=== PATIENT | male | born 1960 | race Two or more races ===

== ENCOUNTER 2021-04-30 09:35 | Inpatient (IN) | payer MEDICAID, OTHER ==
[~2021-04-30] VITALS: Ht 172.7 cm; Wt 88.5 kg
[2021-04-30] MEDS ORDERED: cefTRIAXone 1GM/50ML D5W 50 ML IV ONE (10:45)
[2021-04-30] MEDS ORDERED: DexAMETHasone SOD PHOS 10MG/1ML VIAL INJ IV ONE (10:45)
[2021-04-30 11:11] LABS: Basophils # (auto) 0.2 10 ^3/uL (0-0.2); Basophils % (auto) 1.5 % (0.0-2.0); Eosinophils # (auto) 0 10 ^3/uL (0-0.8); Hematocrit 50.7 % (41.0-53.0); Hemoglobin 17.3 g/dL (13.5-17.5); Lymphocytes # (auto) 1.7 10 ^3/uL (0.4-5.4); Lymphocytes % (auto) 15.8 % (10.0-50.0); Mean Corpuscular Hemoglobin 31.7 pg (28.0-32.0); Mean Corpuscular Hgb Conc. 34.2 g/dL (32.0-36.0); Mean Corpuscular Volume 92.7 fL (80.0-100.0); Monocytes # (auto) 0.8 10 ^3/uL (0-1.3); Monocytes % (auto) 7.8 % (0.0-12.0); Neutrophils # (auto) 8.1 10 ^3/uL (1.6-8.6); Neutrophils % (auto) 74.9 % (37.0-80.0); Nucleated Red Blood Cells % 0.2 %; Red Blood Cells 5.48 10^6/uL (4.5-5.90); Red Cell Distribution Width 13.5 % (11.8-14.3); White Blood Cell 10.8 10^3/uL (4.4-10.8)
[2021-04-30 11:27] LABS: Albumin 2.4 g/dL (3.4-5.0); Anion Gap 5 (5-15); Blood Urea Nitrogen 13 mg/dL (7-18); Calcium 7.2 mg/dL (8.5-10.1); Carbon Dioxide 23 mmol/L (21-32); Chloride 111 mmol/L (98-107); Glucose 101 mg/dL (74-106); Potassium 3.1 mmol/L (3.5-5.1); Sodium 139 mmol/L (136-145)
[2021-04-30 11:36] LABS: Alanine Aminotransferase 28 U/L (16-61); Alkaline Phosphatase 69 U/L (45-117); Aspartate Aminotransferase 49 U/L (15-37); BUN/Creatinine Ratio 20.6; Bilirubin, Total 0.7 mg/dL (0.2-1.0); CRP High Sensitivity 7.38 mg/dL (< 0.3); GFR African American 165 mL/min; GFR Non-African American 137 mL/min; Total Protein 7.5 g/dL (6.4-8.2)
[2021-04-30] MEDS ORDERED: ONDANSETRON HCL 4 MG/2 ML VIAL IV ONE (12:00)
[2021-04-30] MEDS ORDERED: ENOXAPARIN SOD 120 MG/0.8 ML SYRINGE SC ONE (12:15)
[2021-04-30] MEDS ORDERED: IOHEXOL 350 MG/ML 100ML IJ ONE (12:22)
[2021-04-30] MEDS ORDERED: REMDESIVIR PER PHARMACY 0 ML IV SCH (15:45)
[2021-04-30] MEDS ORDERED: ONDANSETRON HCL 4 MG/2 ML VIAL IV PRN (15:45)
[2021-04-30] MEDS ORDERED: HYDROcodone-ACET 5/325MG TAB PO PRN (15:45)
[2021-04-30] MEDS ORDERED: ACETAMINOPHEN 500 MG TAB PO PRN (15:45)
[2021-04-30] MEDS ORDERED: hydrALAZINE HCL 20 MG/ML VL IV PRN (15:45)
[2021-04-30] MEDS: POTASSIUM CHL 20MEQ/100ML 100 ML IV SCH ×2 (16:42→20:09)
[2021-04-30] MEDS: ALBUTEROL SULF HFA 90MCG INH 200DOSE IN SCH ×2 (18:00→22:51)
[2021-04-30 21:03] LABS: Urine Bacteria NONE SEEN /hpf (None Seen); Urine Blood Negative /uL (Negative); Urine Mucus FEW (None Seen); Urine Specific Gravity 1.036 (1.001-1.035); Urine WBC 2 /hpf (0 - 3)
[2021-04-30 22:51] VITALS: BP 128/83
[2021-04-30 23:41] LABS: Basophils # (auto) 0.1 10 ^3/uL (0-0.2); Basophils % (auto) 0.6 % (0.0-2.0); Eosinophils # (auto) 0 10 ^3/uL (0-0.8); Hematocrit 42.2 % (41.0-53.0); Hemoglobin 14.6 g/dL (13.5-17.5); Lymphocytes # (auto) 1.3 10 ^3/uL (0.4-5.4); Lymphocytes % (auto) 13.6 % (10.0-50.0); Mean Corpuscular Hemoglobin 32.1 pg (28.0-32.0); Mean Corpuscular Hgb Conc. 34.6 g/dL (32.0-36.0); Mean Corpuscular Volume 92.8 fL (80.0-100.0); Monocytes # (auto) 0.6 10 ^3/uL (0-1.3); Monocytes % (auto) 6.3 % (0.0-12.0); Neutrophils # (auto) 7.3 10 ^3/uL (1.6-8.6); Neutrophils % (auto) 79.5 % (37.0-80.0); Nucleated Red Blood Cells % 0.1 %; Red Blood Cells 4.55 10^6/uL (4.5-5.90); Red Cell Distribution Width 13.4 % (11.8-14.3); White Blood Cell 9.2 10^3/uL (4.4-10.8)
[2021-05-01 00:01] LABS: Calcium 7.5 mg/dL (8.5-10.1); Potassium 4.9 mmol/L (3.5-5.1)
[2021-05-01 00:06] LABS: Albumin 2.1 g/dL (3.4-5.0); Bilirubin, Total 0.5 mg/dL (0.2-1.0); Total Protein 7.1 g/dL (6.4-8.2)
[2021-05-01 00:08] LABS: BUN/Creatinine Ratio 21.3
[2021-05-01 03:40] LABS: Basophils # (auto) 0.1 10 ^3/uL (0-0.2); Basophils % (auto) 0.8 % (0.0-2.0); Eosinophils # (auto) 0 10 ^3/uL (0-0.8); Hematocrit 43.5 % (41.0-53.0); Hemoglobin 15.1 g/dL (13.5-17.5); Lymphocytes # (auto) 1.6 10 ^3/uL (0.4-5.4); Lymphocytes % (auto) 13.6 % (10.0-50.0); Mean Corpuscular Hemoglobin 32.2 pg (28.0-32.0); Mean Corpuscular Hgb Conc. 34.7 g/dL (32.0-36.0); Mean Corpuscular Volume 92.8 fL (80.0-100.0); Monocytes # (auto) 0.8 10 ^3/uL (0-1.3); Monocytes % (auto) 6.7 % (0.0-12.0); Neutrophils % (auto) 78.9 % (37.0-80.0); Red Blood Cells 4.69 10^6/uL (4.5-5.90); Red Cell Distribution Width 13.5 % (11.8-14.3); White Blood Cell 11.5 10^3/uL (4.4-10.8)
[2021-05-01 04:25] LABS: Albumin 2.3 g/dL (3.4-5.0); BUN/Creatinine Ratio 20.7; Calcium 7.8 mg/dL (8.5-10.1); Potassium 4.3 mmol/L (3.5-5.1)
[2021-05-01 04:27] LABS: Bilirubin, Total 0.5 mg/dL (0.2-1.0); Total Protein 7.5 g/dL (6.4-8.2)
[2021-05-01] MEDS: ALBUTEROL SULF HFA 90MCG INH 200DOSE IN SCH ×4 (06:00→19:00)
[2021-05-01] MEDS ORDERED: REMDESIVIR 200 MG in NS 210ml LOADING DOSE ADULT IV ONE (08:45)
[2021-05-01] MEDS: DOXYCYCLINE 100MG/250ML 250 ML IV SCH ×2 (10:43→21:28)
[2021-05-01] MEDS: DexAMETHasone SOD PHOS 10MG/1ML VIAL INJ IV SCH (10:43)
[2021-05-01] MEDS: PANTOPRAZOLE 40 MG TAB PO SCH (10:44)
[2021-05-01] MEDS: ENOXAPARIN SOD 40 MG/0.4 ML SYRINGE SC SCH (10:44)
[2021-05-01] MEDS: METHADONE HCL 10 MG TAB PO SCH (12:26)
[2021-05-01] MEDS ORDERED: FAMO40TA7 PO (13:29)
[2021-05-02] VITALS (9 sets, daily range): BP systolic 83–160; BP diastolic 55–101
[2021-05-02] MEDS: ALBUTEROL SULF HFA 90MCG INH 200DOSE IN SCH ×2 (00:15→06:00)
[2021-05-02 05:23] LABS: Basophils # (auto) 0.1 10 ^3/uL (0-0.2); Basophils % (auto) 0.5 % (0.0-2.0); Eosinophils # (auto) 0 10 ^3/uL (0-0.8); Hematocrit 45.5 % (41.0-53.0); Hemoglobin 15.6 g/dL (13.5-17.5); Lymphocytes # (auto) 1.8 10 ^3/uL (0.4-5.4); Mean Corpuscular Hemoglobin 31.9 pg (28.0-32.0); Mean Corpuscular Hgb Conc. 34.3 g/dL (32.0-36.0); Mean Corpuscular Volume 92.9 fL (80.0-100.0); Monocytes # (auto) 0.5 10 ^3/uL (0-1.3); Neutrophils # (auto) 9.1 10 ^3/uL (1.6-8.6); Neutrophils % (auto) 79.5 % (37.0-80.0); Nucleated Red Blood Cells % 0.1 %; Red Cell Distribution Width 13.5 % (11.8-14.3); White Blood Cell 11.4 10^3/uL (4.4-10.8)
[2021-05-02 05:45] LABS: Albumin 2.4 g/dL (3.4-5.0); Calcium 8.2 mg/dL (8.5-10.1); Potassium 3.4 mmol/L (3.5-5.1)
[2021-05-02 05:48] LABS: BUN/Creatinine Ratio 15.3; Bilirubin, Total 0.6 mg/dL (0.2-1.0); Total Protein 7.8 g/dL (6.4-8.2)
[2021-05-02] MEDS: DexAMETHasone SOD PHOS 10MG/1ML VIAL INJ IV SCH (08:55)
[2021-05-02] MEDS: METHADONE HCL 10 MG TAB PO SCH (08:55)
[2021-05-02] MEDS: DOXYCYCLINE 100MG/250ML 250 ML IV SCH ×2 (08:55→20:52)
[2021-05-02] MEDS: ENOXAPARIN SOD 40 MG/0.4 ML SYRINGE SC SCH (08:56)
[2021-05-02] MEDS ORDERED: MIDAZOLAM DRIP 50 mg/50mL 50 ML IV SCH (10:00)
[2021-05-02] MEDS ORDERED: ETOMIDATE (2MG/ML) 20ML VIAL IV ONE ×2 (10:00→10:01)
[2021-05-02] MEDS: PANTOPRAZOLE 40 MG TAB PO SCH (10:00)
[2021-05-02] MEDS ORDERED: ROCURONIUM 10MG/ML 10ML VIAL IV ONE ×2 (10:00→10:05)
[2021-05-02] MEDS ORDERED: MIDAZOLAM DRIP 50 mg/50mL 50 ML IV ONE (10:01)
[2021-05-02] MEDS ORDERED: SUCCINYLCHOLINE CHLORIDE 20 MG/ML 10ML VIAL IV ONE (10:01)
[2021-05-02] MEDS ORDERED: fentaNYL Drip 2500mCg/250mlNS 250 ML IV ONE (10:06)
[2021-05-02] MEDS: MIDAZOLAM DRIP 50 mg/50mL 50 ML IV SCH ×4 (10:25→22:05)
[2021-05-02] MEDS: fentaNYL Drip 2500mCg/250mlNS 250 ML IV SCH (10:25)
[2021-05-02] MEDS: PROPOFOL 100 ML IV SCH (10:25)
[2021-05-02] MEDS: NOREPINEPHRINE 8 MG/250ML KIT 250 ML IV SCH (11:20)
[2021-05-02] MEDS: REMDESIVIR 100mg 100 MG in SODIUM CHL 0.9% 230 ML IV SCH (16:06)
[2021-05-02] MEDS: ALBUTEROL SULF 2.5 MG/0.5ML(0.5%) NEB SOLN NEB SCH (19:37)
[2021-05-03] VITALS (12 sets, daily range): BP systolic 84–114; BP diastolic 56–78
[2021-05-03] MEDS: MIDAZOLAM DRIP 50 mg/50mL 50 ML IV SCH ×5 (02:07→18:55)
[2021-05-03] MEDS: ALBUTEROL SULF 2.5 MG/0.5ML(0.5%) NEB SOLN NEB SCH ×4 (04:13→19:43)
[2021-05-03] MEDS: fentaNYL Drip 2500mCg/250mlNS 250 ML IV SCH (04:39)
[2021-05-03 05:03] LABS: Basophils # (auto) 0 10 ^3/uL (0-0.2); Basophils % (auto) 0.3 % (0.0-2.0); Eosinophils # (auto) 0 10 ^3/uL (0-0.8); Eosinophils % (auto) 0.1 % (0.0-7.0); Hematocrit 46.4 % (41.0-53.0); Hemoglobin 16.1 g/dL (13.5-17.5); Lymphocytes # (auto) 1.1 10 ^3/uL (0.4-5.4); Lymphocytes % (auto) 11.3 % (10.0-50.0); Mean Corpuscular Hemoglobin 32.1 pg (28.0-32.0); Mean Corpuscular Hgb Conc. 34.7 g/dL (32.0-36.0); Mean Corpuscular Volume 92.5 fL (80.0-100.0); Monocytes # (auto) 0.3 10 ^3/uL (0-1.3); Monocytes % (auto) 3.3 % (0.0-12.0); Neutrophils # (auto) 8.3 10 ^3/uL (1.6-8.6); Nucleated Red Blood Cells % 0.1 %; Red Blood Cells 5.02 10^6/uL (4.5-5.90); Red Cell Distribution Width 13.5 % (11.8-14.3); White Blood Cell 9.8 10^3/uL (4.4-10.8)
[2021-05-03 05:18] LABS: Potassium 3.2 mmol/L (3.5-5.1)
[2021-05-03 05:34] LABS: Albumin 2.2 g/dL (3.4-5.0); BUN/Creatinine Ratio 18.9; Bilirubin, Total 0.5 mg/dL (0.2-1.0); Calcium 8.1 mg/dL (8.5-10.1); Total Protein 7.9 g/dL (6.4-8.2)
[2021-05-03] MEDS: NOREPINEPHRINE 8 MG/250ML KIT 250 ML IV SCH (06:31)
[2021-05-03] MEDS: DOXYCYCLINE 100MG/250ML 250 ML IV SCH ×2 (08:38→21:15)
[2021-05-03] MEDS: PROPOFOL 100 ML IV SCH (10:00)
[2021-05-03] MEDS: METHADONE HCL 10 MG TAB PO SCH (10:28)
[2021-05-03] MEDS: DexAMETHasone SOD PHOS 10MG/1ML VIAL INJ IV SCH (10:28)
[2021-05-03] MEDS: ENOXAPARIN SOD 40 MG/0.4 ML SYRINGE SC SCH (10:29)
[2021-05-03] MEDS: OMEPRAZOLE 20MG/10ML ORAL SUSP GT SCH (11:05)
[2021-05-03] MEDS: REMDESIVIR 100mg 100 MG in SODIUM CHL 0.9% 230 ML IV SCH (14:34)
[2021-05-04] VITALS (88 sets, daily range): BP systolic 81–129; BP diastolic 44–92
[2021-05-04] MEDS: ALBUTEROL SULF 2.5 MG/0.5ML(0.5%) NEB SOLN NEB SCH ×5 (01:34→23:43)
[2021-05-04 06:39] LABS: Basophils # (auto) 0 10 ^3/uL (0-0.2); Basophils % (auto) 0.3 % (0.0-2.0); Eosinophils # (auto) 0 10 ^3/uL (0-0.8); Eosinophils % (auto) 0.1 % (0.0-7.0); Hematocrit 40.4 % (41.0-53.0); Hemoglobin 13.9 g/dL (13.5-17.5); Lymphocytes # (auto) 0.7 10 ^3/uL (0.4-5.4); Lymphocytes % (auto) 9.3 % (10.0-50.0); Mean Corpuscular Hemoglobin 32.2 pg (28.0-32.0); Mean Corpuscular Hgb Conc. 34.4 g/dL (32.0-36.0); Mean Corpuscular Volume 93.8 fL (80.0-100.0); Monocytes # (auto) 0.3 10 ^3/uL (0-1.3); Monocytes % (auto) 3.8 % (0.0-12.0); Neutrophils # (auto) 6.3 10 ^3/uL (1.6-8.6); Neutrophils % (auto) 86.5 % (37.0-80.0); Nucleated Red Blood Cells % 0.1 %; Red Blood Cells 4.31 10^6/uL (4.5-5.90); Red Cell Distribution Width 13.6 % (11.8-14.3); White Blood Cell 7.3 10^3/uL (4.4-10.8)
[2021-05-04 07:01] LABS: Potassium 3.4 mmol/L (3.5-5.1)
[2021-05-04] MEDS: MIDAZOLAM DRIP 50 mg/50mL 50 ML IV SCH ×5 (07:03→23:00)
[2021-05-04 07:13] LABS: Albumin 1.9 g/dL (3.4-5.0); BUN/Creatinine Ratio 28.8; Bilirubin, Total 0.4 mg/dL (0.2-1.0); CRP High Sensitivity 8.6 mg/dL (< 0.3); Total Protein 7.1 g/dL (6.4-8.2)
[2021-05-04] MEDS: NOREPINEPHRINE 8 MG/250ML KIT 250 ML IV SCH (07:47)
[2021-05-04] MEDS: ENOXAPARIN SOD 40 MG/0.4 ML SYRINGE SC SCH (09:21)
[2021-05-04] MEDS: DOXYCYCLINE 100MG/250ML 250 ML IV SCH ×2 (09:21→20:42)
[2021-05-04] MEDS: DexAMETHasone SOD PHOS 10MG/1ML VIAL INJ IV SCH (09:22)
[2021-05-04] MEDS: METHADONE HCL 10 MG TAB PO SCH (09:22)
[2021-05-04] MEDS: OMEPRAZOLE 20MG/10ML ORAL SUSP GT SCH (09:28)
[2021-05-04] MEDS: PROPOFOL 100 ML IV SCH (10:00)
[2021-05-04] MEDS: fentaNYL Drip 2500mCg/250mlNS 250 ML IV SCH ×2 (10:46→23:00)
[2021-05-04] MEDS ORDERED: POTASSIUM EFFERVESENT TAB 25 MEQ PO ONE ×2 (14:00→23:00)
[2021-05-04] MEDS: REMDESIVIR 100mg 100 MG in SODIUM CHL 0.9% 230 ML IV SCH (14:25)
[2021-05-05] VITALS (97 sets, daily range): BP systolic 105–165; BP diastolic 54–88
[2021-05-05] MEDS: MIDAZOLAM DRIP 50 mg/50mL 50 ML IV SCH ×4 (03:00→20:17)
[2021-05-05 04:19] LABS: Basophils # (auto) 0 10 ^3/uL (0-0.2); Basophils % (auto) 0.5 % (0.0-2.0); Eosinophils # (auto) 0 10 ^3/uL (0-0.8); Eosinophils % (auto) 0.2 % (0.0-7.0); Hemoglobin 14.7 g/dL (13.5-17.5); Lymphocytes % (auto) 10.2 % (10.0-50.0); Mean Corpuscular Hemoglobin 32.4 pg (28.0-32.0); Mean Corpuscular Hgb Conc. 34.9 g/dL (32.0-36.0); Mean Corpuscular Volume 92.9 fL (80.0-100.0); Monocytes # (auto) 0.5 10 ^3/uL (0-1.3); Monocytes % (auto) 4.9 % (0.0-12.0); Neutrophils # (auto) 8.1 10 ^3/uL (1.6-8.6); Neutrophils % (auto) 84.2 % (37.0-80.0); Red Blood Cells 4.52 10^6/uL (4.5-5.90); Red Cell Distribution Width 13.7 % (11.8-14.3); White Blood Cell 9.7 10^3/uL (4.4-10.8)
[2021-05-05 04:32] LABS: Albumin 2.1 g/dL (3.4-5.0); Calcium 7.9 mg/dL (8.5-10.1); Potassium 3.8 mmol/L (3.5-5.1)
[2021-05-05 04:41] LABS: BUN/Creatinine Ratio 26.3; Bilirubin, Total 0.4 mg/dL (0.2-1.0); CRP High Sensitivity 5.1 mg/dL (< 0.3); Total Protein 7.4 g/dL (6.4-8.2)
[2021-05-05] MEDS: ALBUTEROL SULF 2.5 MG/0.5ML(0.5%) NEB SOLN NEB SCH ×3 (06:25→17:52)
[2021-05-05] MEDS: DexAMETHasone SOD PHOS 10MG/1ML VIAL INJ IV SCH (09:04)
[2021-05-05] MEDS: DOXYCYCLINE 100MG/250ML 250 ML IV SCH ×3 (09:04→20:19)
[2021-05-05] MEDS: METHADONE HCL 10 MG TAB PO SCH (09:05)
[2021-05-05] MEDS: ENOXAPARIN SOD 40 MG/0.4 ML SYRINGE SC SCH (09:06)
[2021-05-05] MEDS: OMEPRAZOLE 20MG/10ML ORAL SUSP GT SCH (09:08)
[2021-05-05] MEDS: NOREPINEPHRINE 8 MG/250ML KIT 250 ML IV SCH (10:00)
[2021-05-05] MEDS: PROPOFOL 100 ML IV SCH (10:57)
[2021-05-05] MEDS: fentaNYL Drip 2500mCg/250mlNS 250 ML IV SCH (11:56)
[2021-05-05 12:32] LABS: INR 1.16 (0.9-1.15); Partial Thromboplastin Time 27.1 sec (23.6-33.0)
[2021-05-05] MEDS: REMDESIVIR 100mg 100 MG in SODIUM CHL 0.9% 230 ML IV SCH (16:51)
[2021-05-05] MEDS: SODIUM CHLOR 0.9% PF (SALINE LOCK) 10ML VIAL/SYR IV SCH (22:00)
[2021-05-06] VITALS (107 sets, daily range): BP systolic 108–166; BP diastolic 54–86
[2021-05-06] MEDS: ALBUTEROL SULF 2.5 MG/0.5ML(0.5%) NEB SOLN NEB SCH ×3 (00:12→19:09)
[2021-05-06] MEDS ORDERED: ACETAMINOPHEN 325 MG TAB PO PRN (01:15)
[2021-05-06] MEDS: MIDAZOLAM DRIP 50 mg/50mL 50 ML IV SCH ×2 (01:38→07:45)
[2021-05-06] MEDS: fentaNYL Drip 2500mCg/250mlNS 250 ML IV SCH ×2 (02:50→20:46)
[2021-05-06 06:55] LABS: Hematocrit 38.5 % (41.0-53.0); Hemoglobin 13.1 g/dL (13.5-17.5); Mean Corpuscular Hemoglobin 32.5 pg (28.0-32.0); Mean Corpuscular Volume 95.4 fL (80.0-100.0); Red Blood Cells 4.04 10^6/uL (4.5-5.90); Red Cell Distribution Width 13.8 % (11.8-14.3); White Blood Cell 6.9 10^3/uL (4.4-10.8)
[2021-05-06 07:01] LABS: Basophils % (manual) 0 (0.0-2.0); Blast Cells 0; Eosinophils % (manual) 0 (0-7); Metamyelocytes % 0; Myelocytes % 0; Promyelocytes % 0; Reactive Lymphocytes 0
[2021-05-06 07:05] LABS: Albumin 1.9 g/dL (3.4-5.0); BUN/Creatinine Ratio 27.3; Bilirubin, Total 0.3 mg/dL (0.2-1.0); CRP High Sensitivity 1.98 mg/dL (< 0.3); Calcium 8.1 mg/dL (8.5-10.1); Total Protein 6.7 g/dL (6.4-8.2)
[2021-05-06 08:20] LABS: Band Neutrophils % (manual) 3; Lymphocytes % (manual) 12 (10.0-50.0); Monocytes % (manual) 4 (0-12)
[2021-05-06] MEDS: ENOXAPARIN SOD 40 MG/0.4 ML SYRINGE SC SCH (09:08)
[2021-05-06] MEDS: DOXYCYCLINE 100MG/250ML 250 ML IV SCH ×2 (09:08→21:05)
[2021-05-06] MEDS: OMEPRAZOLE 20MG/10ML ORAL SUSP GT SCH (09:10)
[2021-05-06] MEDS: DexAMETHasone SOD PHOS 10MG/1ML VIAL INJ IV SCH (09:10)
[2021-05-06] MEDS: METHADONE HCL 10 MG TAB PO SCH (09:11)
[2021-05-06] MEDS: NOREPINEPHRINE 8 MG/250ML KIT 250 ML IV SCH (09:12)
[2021-05-06] MEDS: SODIUM CHLOR 0.9% PF (SALINE LOCK) 10ML VIAL/SYR IV SCH ×2 (09:12→22:13)
[2021-05-06] MEDS: PROPOFOL 100 ML IV SCH ×3 (10:00→23:28)
[2021-05-07] VITALS (100 sets, daily range): BP systolic 102–179; BP diastolic 58–89
[2021-05-07] MEDS: ALBUTEROL SULF 2.5 MG/0.5ML(0.5%) NEB SOLN NEB SCH ×4 (00:35→19:13)
[2021-05-07 04:18] LABS: Basophils # (auto) 0 10 ^3/uL (0-0.2); Basophils % (auto) 0.6 % (0.0-2.0); Eosinophils # (auto) 0.1 10 ^3/uL (0-0.8); Eosinophils % (auto) 1.2 % (0.0-7.0); Hemoglobin 14.1 g/dL (13.5-17.5); Lymphocytes # (auto) 1.7 10 ^3/uL (0.4-5.4); Lymphocytes % (auto) 21.1 % (10.0-50.0); Mean Corpuscular Hemoglobin 31.8 pg (28.0-32.0); Mean Corpuscular Hgb Conc. 34.5 g/dL (32.0-36.0); Mean Corpuscular Volume 92.3 fL (80.0-100.0); Monocytes # (auto) 0.5 10 ^3/uL (0-1.3); Monocytes % (auto) 5.9 % (0.0-12.0); Neutrophils # (auto) 5.7 10 ^3/uL (1.6-8.6); Neutrophils % (auto) 71.2 % (37.0-80.0); Nucleated Red Blood Cells % 0.2 %; Red Blood Cells 4.44 10^6/uL (4.5-5.90); Red Cell Distribution Width 13.4 % (11.8-14.3)
[2021-05-07] MEDS: DOXYCYCLINE 100MG/250ML 250 ML IV SCH ×2 (09:13→20:27)
[2021-05-07] MEDS: OMEPRAZOLE 20MG/10ML ORAL SUSP GT SCH (09:23)
[2021-05-07] MEDS: DexAMETHasone SOD PHOS 10MG/1ML VIAL INJ IV SCH (09:23)
[2021-05-07] MEDS: METHADONE HCL 10 MG TAB PO SCH (09:24)
[2021-05-07] MEDS: ENOXAPARIN SOD 40 MG/0.4 ML SYRINGE SC SCH (09:24)
[2021-05-07] MEDS: NOREPINEPHRINE 8 MG/250ML KIT 250 ML IV SCH (10:00)
[2021-05-07] MEDS: SODIUM CHLOR 0.9% PF (SALINE LOCK) 10ML VIAL/SYR IV SCH ×2 (10:27→20:27)
[2021-05-07] MEDS: MIDAZOLAM DRIP 50 mg/50mL 50 ML IV SCH ×2 (17:42→21:06)
[2021-05-07] MEDS ORDERED: fentaNYL 75MCG/HR 75 MCG/HR PAT TD SCH (18:30)
[2021-05-07] MEDS: PROPOFOL 100 ML IV SCH (21:05)
[2021-05-08] VITALS (93 sets, daily range): BP systolic 105–173; BP diastolic 47–87
[2021-05-08 04:57] LABS: Basophils # (auto) 0.1 10 ^3/uL (0-0.2); Basophils % (auto) 0.7 % (0.0-2.0); Eosinophils # (auto) 0.1 10 ^3/uL (0-0.8); Eosinophils % (auto) 0.9 % (0.0-7.0); Hematocrit 41.2 % (41.0-53.0); Hemoglobin 13.9 g/dL (13.5-17.5); Lymphocytes # (auto) 1.4 10 ^3/uL (0.4-5.4); Lymphocytes % (auto) 15.3 % (10.0-50.0); Mean Corpuscular Hemoglobin 31.8 pg (28.0-32.0); Mean Corpuscular Hgb Conc. 33.6 g/dL (32.0-36.0); Mean Corpuscular Volume 94.6 fL (80.0-100.0); Monocytes # (auto) 0.6 10 ^3/uL (0-1.3); Monocytes % (auto) 6.1 % (0.0-12.0); Nucleated Red Blood Cells % 0.1 %; Red Blood Cells 4.36 10^6/uL (4.5-5.90); White Blood Cell 9.1 10^3/uL (4.4-10.8)
[2021-05-08] MEDS: ALBUTEROL SULF 2.5 MG/0.5ML(0.5%) NEB SOLN NEB SCH ×5 (07:47→23:52)
[2021-05-08 08:02] LABS: BUN/Creatinine Ratio 27.9; Potassium 3.6 mmol/L (3.5-5.1)
[2021-05-08] MEDS: DOXYCYCLINE 100MG/250ML 250 ML IV SCH ×2 (09:03→22:26)
[2021-05-08] MEDS: fentaNYL Drip 2500mCg/250mlNS 250 ML IV SCH (10:00)
[2021-05-08] MEDS: SODIUM CHLOR 0.9% PF (SALINE LOCK) 10ML VIAL/SYR IV SCH ×2 (10:00→22:26)
[2021-05-08] MEDS: NOREPINEPHRINE 8 MG/250ML KIT 250 ML IV SCH (10:00)
[2021-05-08] MEDS: OMEPRAZOLE 20MG/10ML ORAL SUSP GT SCH (10:34)
[2021-05-08] MEDS: DexAMETHasone SOD PHOS 10MG/1ML VIAL INJ IV SCH (10:34)
[2021-05-08] MEDS: ENOXAPARIN SOD 40 MG/0.4 ML SYRINGE SC SCH (10:34)
[2021-05-08] MEDS ORDERED: FOLIC ACID 1 MG, MULTIPLE VITAMIN 10 ML, MAGNESIUM SULF SDV 50% 8 MEQ, THIAMINE INJ 100... INJ ONE ×5 (12:00)
[2021-05-08] MEDS: PROPOFOL 100 ML IV SCH (15:39)
[2021-05-08] MEDS: MIDAZOLAM DRIP 50 mg/50mL 50 ML IV SCH (15:40)
[2021-05-09] VITALS (103 sets, daily range): BP systolic 108–173; BP diastolic 56–86
[2021-05-09 04:35] LABS: Hematocrit 41.7 % (41.0-53.0); Hemoglobin 14.1 g/dL (13.5-17.5); Mean Corpuscular Hemoglobin 31.6 pg (28.0-32.0); Mean Corpuscular Hgb Conc. 33.9 g/dL (32.0-36.0); Mean Corpuscular Volume 93.3 fL (80.0-100.0); Red Blood Cells 4.46 10^6/uL (4.5-5.90); Red Cell Distribution Width 13.5 % (11.8-14.3); White Blood Cell 9.7 10^3/uL (4.4-10.8)
[2021-05-09 05:19] LABS: Basophils % (manual) 0 (0.0-2.0); Eosinophils % (manual) 0 (0-7); Metamyelocytes % 0; Promyelocytes % 0; Reactive Lymphocytes 0
[2021-05-09] MEDS: ALBUTEROL SULF 2.5 MG/0.5ML(0.5%) NEB SOLN NEB SCH ×4 (06:22→23:54)
[2021-05-09 06:46] LABS: Band Neutrophils % (manual) 9; Blast Cells 1; Lymphocytes % (manual) 15 (10.0-50.0); Monocytes % (manual) 4 (0-12); Myelocytes % 5
[2021-05-09] MEDS: DOXYCYCLINE 100MG/250ML 250 ML IV SCH ×2 (09:11→20:05)
[2021-05-09] MEDS: OMEPRAZOLE 20MG/10ML ORAL SUSP GT SCH (09:13)
[2021-05-09] MEDS: DexAMETHasone SOD PHOS 10MG/1ML VIAL INJ IV SCH (09:13)
[2021-05-09] MEDS: ENOXAPARIN SOD 40 MG/0.4 ML SYRINGE SC SCH (09:14)
[2021-05-09] MEDS: METHADONE HCL 10 MG TAB PO SCH (09:14)
[2021-05-09] MEDS: fentaNYL Drip 2500mCg/250mlNS 250 ML IV SCH (10:00)
[2021-05-09] MEDS: SODIUM CHLOR 0.9% PF (SALINE LOCK) 10ML VIAL/SYR IV SCH ×2 (10:00→20:05)
[2021-05-09] MEDS: NOREPINEPHRINE 8 MG/250ML KIT 250 ML IV SCH (10:00)
[2021-05-09] MEDS ORDERED: Jevity 1.2 Cal/Fiber 1 Liter GT SCH (10:15)
[2021-05-09] MEDS: PROPOFOL 100 ML IV SCH ×3 (11:45→23:16)
[2021-05-09] MEDS: MIDAZOLAM DRIP 50 mg/50mL 50 ML IV SCH (20:06)
[2021-05-09] MEDS: QUEtiapine FUMARATE 25 MG TAB PO SCH (20:06)
[2021-05-10] VITALS (100 sets, daily range): BP systolic 101–181; BP diastolic 58–112
[2021-05-10] MEDS: MIDAZOLAM DRIP 50 mg/50mL 50 ML IV SCH (04:41)
[2021-05-10 05:11] LABS: Basophils # (auto) 0 10 ^3/uL (0-0.2); Basophils % (auto) 0.3 % (0.0-2.0); Eosinophils # (auto) 0.1 10 ^3/uL (0-0.8); Eosinophils % (auto) 1.5 % (0.0-7.0); Hematocrit 42.1 % (41.0-53.0); Hemoglobin 14.1 g/dL (13.5-17.5); Lymphocytes # (auto) 1.5 10 ^3/uL (0.4-5.4); Lymphocytes % (auto) 16.2 % (10.0-50.0); Mean Corpuscular Hemoglobin 31.5 pg (28.0-32.0); Mean Corpuscular Hgb Conc. 33.4 g/dL (32.0-36.0); Mean Corpuscular Volume 94.4 fL (80.0-100.0); Monocytes # (auto) 0.4 10 ^3/uL (0-1.3); Monocytes % (auto) 4.6 % (0.0-12.0); Neutrophils # (auto) 7.3 10 ^3/uL (1.6-8.6); Neutrophils % (auto) 77.4 % (37.0-80.0); Nucleated Red Blood Cells % 0.1 %; Red Blood Cells 4.46 10^6/uL (4.5-5.90); Red Cell Distribution Width 13.5 % (11.8-14.3); White Blood Cell 9.4 10^3/uL (4.4-10.8)
[2021-05-10 05:47] LABS: Anion Gap 6 (5-15); BUN/Creatinine Ratio 27.1; Blood Urea Nitrogen 13 mg/dL (7-18); Calcium 8.1 mg/dL (8.5-10.1); Carbon Dioxide 23 mmol/L (21-32); Chloride 111 mmol/L (98-107); GFR African American 226 mL/min; GFR Non-African American 187 mL/min; Glucose 95 mg/dL (74-106); Potassium 3.8 mmol/L (3.5-5.1); Sodium 140 mmol/L (136-145)
[2021-05-10] MEDS: ALBUTEROL SULF 2.5 MG/0.5ML(0.5%) NEB SOLN NEB SCH ×3 (06:51→18:08)
[2021-05-10 07:16] LABS: CRP High Sensitivity 2.15 mg/dL (< 0.3)
[2021-05-10] MEDS: DOXYCYCLINE 100MG/250ML 250 ML IV SCH ×2 (09:29→20:56)
[2021-05-10] MEDS: NOREPINEPHRINE 8 MG/250ML KIT 250 ML IV SCH (10:00)
[2021-05-10] MEDS: OMEPRAZOLE 20MG/10ML ORAL SUSP GT SCH (10:26)
[2021-05-10] MEDS: DexAMETHasone SOD PHOS 10MG/1ML VIAL INJ IV SCH (10:26)
[2021-05-10] MEDS: SODIUM CHLOR 0.9% PF (SALINE LOCK) 10ML VIAL/SYR IV SCH ×2 (10:27→20:56)
[2021-05-10] MEDS: METHADONE HCL 10 MG TAB PO SCH (10:27)
[2021-05-10] MEDS: QUEtiapine FUMARATE 25 MG TAB PO SCH ×2 (10:28→20:56)
[2021-05-10] MEDS ORDERED: hydrALAZINE HCL 20 MG/ML VL IV PRN (10:30)
[2021-05-10] MEDS: fentaNYL Drip 2500mCg/250mlNS 250 ML IV SCH ×2 (11:00→18:25)
[2021-05-10] MEDS: ENOXAPARIN SOD 40 MG/0.4 ML SYRINGE SC SCH (11:07)
[2021-05-10] MEDS: PROPOFOL 100 ML IV SCH (20:57)
[2021-05-11] VITALS (104 sets, daily range): BP systolic 67–177; BP diastolic 43–125
[2021-05-11] MEDS: ALBUTEROL SULF 2.5 MG/0.5ML(0.5%) NEB SOLN NEB SCH ×4 (00:11→18:34)
[2021-05-11] MEDS: MIDAZOLAM DRIP 50 mg/50mL 50 ML IV SCH (02:33)
[2021-05-11] MEDS: PROPOFOL 100 ML IV SCH ×3 (02:34→21:53)
[2021-05-11 04:06] LABS: Basophils # (auto) 0.1 10 ^3/uL (0-0.2); Basophils % (auto) 0.8 % (0.0-2.0); Eosinophils # (auto) 0.2 10 ^3/uL (0-0.8); Eosinophils % (auto) 1.1 % (0.0-7.0); Hematocrit 43.4 % (41.0-53.0); Hemoglobin 14.5 g/dL (13.5-17.5); Lymphocytes # (auto) 1.2 10 ^3/uL (0.4-5.4); Lymphocytes % (auto) 8.9 % (10.0-50.0); Mean Corpuscular Hemoglobin 31.4 pg (28.0-32.0); Mean Corpuscular Hgb Conc. 33.3 g/dL (32.0-36.0); Mean Corpuscular Volume 94.1 fL (80.0-100.0); Monocytes # (auto) 0.8 10 ^3/uL (0-1.3); Monocytes % (auto) 5.9 % (0.0-12.0); Neutrophils # (auto) 11.3 10 ^3/uL (1.6-8.6); Neutrophils % (auto) 83.3 % (37.0-80.0); Nucleated Red Blood Cells % 0.2 %; Red Blood Cells 4.61 10^6/uL (4.5-5.90); Red Cell Distribution Width 13.7 % (11.8-14.3); White Blood Cell 13.6 10^3/uL (4.4-10.8)
[2021-05-11 04:26] LABS: BUN/Creatinine Ratio 20.4; Calcium 7.9 mg/dL (8.5-10.1); Potassium 3.5 mmol/L (3.5-5.1)
[2021-05-11] MEDS: OMEPRAZOLE 20MG/10ML ORAL SUSP GT SCH (10:00)
[2021-05-11] MEDS: SODIUM CHLOR 0.9% PF (SALINE LOCK) 10ML VIAL/SYR IV SCH ×2 (10:11→21:51)
[2021-05-11] MEDS: DOXYCYCLINE 100MG/250ML 250 ML IV SCH ×2 (10:11→21:51)
[2021-05-11] MEDS: DexAMETHasone SOD PHOS 10MG/1ML VIAL INJ IV SCH (10:11)
[2021-05-11] MEDS: ENOXAPARIN SOD 40 MG/0.4 ML SYRINGE SC SCH (10:12)
[2021-05-11] MEDS: METHADONE HCL 10 MG TAB PO SCH (10:12)
[2021-05-11] MEDS: QUEtiapine FUMARATE 25 MG TAB PO SCH ×2 (10:12→21:51)
[2021-05-11] MEDS: NOREPINEPHRINE 8 MG/250ML KIT 250 ML IV SCH ×2 (10:43→21:57)
[2021-05-12] VITALS (68 sets, daily range): BP systolic 98–162; BP diastolic 57–109
[2021-05-12] MEDS: ALBUTEROL SULF 2.5 MG/0.5ML(0.5%) NEB SOLN NEB SCH ×4 (00:21→18:51)
[2021-05-12 03:59] LABS: Basophils # (auto) 0.1 10 ^3/uL (0-0.2); Basophils % (auto) 0.4 % (0.0-2.0); Eosinophils # (auto) 0.3 10 ^3/uL (0-0.8); Eosinophils % (auto) 2.1 % (0.0-7.0); Hematocrit 43.8 % (41.0-53.0); Hemoglobin 14.7 g/dL (13.5-17.5); Lymphocytes # (auto) 1.5 10 ^3/uL (0.4-5.4); Lymphocytes % (auto) 11.8 % (10.0-50.0); Mean Corpuscular Hemoglobin 31.3 pg (28.0-32.0); Mean Corpuscular Hgb Conc. 33.6 g/dL (32.0-36.0); Mean Corpuscular Volume 93.2 fL (80.0-100.0); Monocytes # (auto) 0.8 10 ^3/uL (0-1.3); Monocytes % (auto) 6.3 % (0.0-12.0); Neutrophils # (auto) 10.2 10 ^3/uL (1.6-8.6); Neutrophils % (auto) 79.4 % (37.0-80.0); Red Blood Cells 4.69 10^6/uL (4.5-5.90); Red Cell Distribution Width 14.1 % (11.8-14.3); White Blood Cell 12.8 10^3/uL (4.4-10.8)
[2021-05-12 04:15] LABS: BUN/Creatinine Ratio 21.4; Calcium 8.4 mg/dL (8.5-10.1)
[2021-05-12 04:21] LABS: Potassium 2.9 mmol/L (3.5-5.1)
[2021-05-12] MEDS: POTASSIUM CHL 20MEQ/50ML 50 ML IV SCH ×3 (05:16→10:02)
[2021-05-12] MEDS: SODIUM CHLOR 0.9% PF (SALINE LOCK) 10ML VIAL/SYR IV SCH ×2 (10:35→21:01)
[2021-05-12] MEDS: DexAMETHasone SOD PHOS 10MG/1ML VIAL INJ IV SCH (10:35)
[2021-05-12] MEDS: ENOXAPARIN SOD 40 MG/0.4 ML SYRINGE SC SCH (10:36)
[2021-05-12] MEDS: METHADONE HCL 10 MG TAB PO SCH (10:40)
[2021-05-12] MEDS: QUEtiapine FUMARATE 25 MG TAB PO SCH ×2 (10:40→21:01)
[2021-05-12] MEDS: OMEPRAZOLE 20MG/10ML ORAL SUSP GT SCH (10:41)
[2021-05-12] MEDS: fentaNYL Drip 2500mCg/250mlNS 250 ML IV SCH (10:56)
[2021-05-12] MEDS: DOXYCYCLINE 100MG/250ML 250 ML IV SCH ×2 (11:04→21:01)
[2021-05-12] MEDS: MIDAZOLAM DRIP 50 mg/50mL 50 ML IV SCH (11:30)
[2021-05-12] MEDS ORDERED: LORazepam 2MG/ML-1ML VIAL ONE (14:46)
[2021-05-12] MEDS: LORazepam 2MG/ML-1ML VIAL IV PRN ×2 (14:47→19:40)
[2021-05-13] VITALS (9 sets, daily range): BP systolic 132–164; BP diastolic 66–99
[2021-05-13] MEDS: ALBUTEROL SULF 2.5 MG/0.5ML(0.5%) NEB SOLN NEB SCH ×4 (00:22→12:39)
[2021-05-13 04:10] LABS: Albumin 2.4 g/dL (3.4-5.0); BUN/Creatinine Ratio 16.1; Calcium 8.4 mg/dL (8.5-10.1); Potassium 3.5 mmol/L (3.5-5.1)
[2021-05-13 04:13] LABS: Bilirubin, Total 1.2 mg/dL (0.2-1.0); Total Protein 7.3 g/dL (6.4-8.2)
[2021-05-13 04:21] LABS: Basophils # (auto) 0.1 10 ^3/uL (0-0.2); Basophils % (auto) 0.8 % (0.0-2.0); Eosinophils # (auto) 0.3 10 ^3/uL (0-0.8); Eosinophils % (auto) 1.7 % (0.0-7.0); Hematocrit 42.9 % (41.0-53.0); Hemoglobin 14.8 g/dL (13.5-17.5); Lymphocytes # (auto) 1.7 10 ^3/uL (0.4-5.4); Lymphocytes % (auto) 11.6 % (10.0-50.0); Mean Corpuscular Hemoglobin 32.2 pg (28.0-32.0); Mean Corpuscular Hgb Conc. 34.4 g/dL (32.0-36.0); Mean Corpuscular Volume 93.5 fL (80.0-100.0); Monocytes # (auto) 1.1 10 ^3/uL (0-1.3); Monocytes % (auto) 7.2 % (0.0-12.0); Neutrophils # (auto) 11.8 10 ^3/uL (1.6-8.6); Neutrophils % (auto) 78.7 % (37.0-80.0); Nucleated Red Blood Cells % 0.1 %; Red Blood Cells 4.59 10^6/uL (4.5-5.90); Red Cell Distribution Width 13.7 % (11.8-14.3)
[2021-05-13] MEDS: fentaNYL Drip 2500mCg/250mlNS 250 ML IV SCH (10:00)
[2021-05-13] MEDS: PROPOFOL 100 ML IV SCH (10:00)
[2021-05-13] MEDS: NOREPINEPHRINE 8 MG/250ML KIT 250 ML IV SCH (10:00)
[2021-05-13] MEDS: OMEPRAZOLE 20MG/10ML ORAL SUSP GT SCH (10:08)
[2021-05-13] MEDS: SODIUM CHLOR 0.9% PF (SALINE LOCK) 10ML VIAL/SYR IV SCH ×2 (10:09→21:47)
[2021-05-13] MEDS: METHADONE HCL 10 MG TAB PO SCH (10:09)
[2021-05-13] MEDS: DexAMETHasone SOD PHOS 10MG/1ML VIAL INJ IV SCH (10:09)
[2021-05-13] MEDS: QUEtiapine FUMARATE 25 MG TAB PO SCH ×2 (10:23→21:47)
[2021-05-13] MEDS: DOXYCYCLINE 100MG/250ML 250 ML IV SCH ×2 (10:40→21:02)
[2021-05-13] MEDS: MIDAZOLAM DRIP 50 mg/50mL 50 ML IV SCH (11:30)
[2021-05-13] MEDS ORDERED: ALBUTEROL SULF HFA 90MCG INH 200DOSE IN SCH (18:00)
[2021-05-13] MEDS: ALBUTEROL SULF HFA 90MCG INH 200DOSE IN SCH (20:40)
[2021-05-14] MEDS: ALBUTEROL SULF HFA 90MCG INH 200DOSE IN SCH ×4 (00:35→20:37)
[2021-05-14] MEDS: DOXYCYCLINE 100MG/250ML 250 ML IV SCH ×2 (09:00→21:19)
[2021-05-14] MEDS: DexAMETHasone SOD PHOS 10MG/1ML VIAL INJ IV SCH (10:00)
[2021-05-14] MEDS: QUEtiapine FUMARATE 25 MG TAB PO SCH ×2 (10:00→21:41)
[2021-05-14] MEDS: OMEPRAZOLE 20MG/10ML ORAL SUSP GT SCH (10:00)
[2021-05-14] MEDS: SODIUM CHLOR 0.9% PF (SALINE LOCK) 10ML VIAL/SYR IV SCH ×2 (10:00→21:41)
[2021-05-14] MEDS: METHADONE HCL 10 MG TAB PO SCH (10:00)
[2021-05-14 13:00] VITALS: BP 136/91
[2021-05-14 21:43] VITALS: BP 127/88
[2021-05-15 05:15] VITALS: BP 130/81
[2021-05-15] MEDS: ALBUTEROL SULF HFA 90MCG INH 200DOSE IN SCH ×3 (06:00→21:19)
[2021-05-15 09:00] VITALS: BP 145/86
[2021-05-15] MEDS: DOXYCYCLINE 100MG/250ML 250 ML IV SCH (09:25)
[2021-05-15] MEDS: OMEPRAZOLE 20MG/10ML ORAL SUSP GT SCH (09:26)
[2021-05-15] MEDS: DexAMETHasone SOD PHOS 10MG/1ML VIAL INJ IV SCH (09:27)
[2021-05-15] MEDS: QUEtiapine FUMARATE 25 MG TAB PO SCH ×2 (09:27→21:28)
[2021-05-15] MEDS: METHADONE HCL 10 MG TAB PO SCH (09:27)
[2021-05-15] MEDS: SODIUM CHLOR 0.9% PF (SALINE LOCK) 10ML VIAL/SYR IV SCH ×2 (09:28→21:28)
[2021-05-15 11:30] VITALS: BP 153/75
[2021-05-15] MEDS: ENOXAPARIN SOD 40 MG/0.4 ML SYRINGE SC SCH (12:31)
[2021-05-15 13:00] VITALS: BP 115/79
[2021-05-15 17:08] VITALS: BP 126/92
[2021-05-15 22:00] VITALS: BP 103/70
[2021-05-15] MEDS ORDERED: IPRATROPIUM BROM 0.5 MG/2.5ML INH SOL ONE (23:09)
[2021-05-16 05:00] VITALS: BP 111/66
[2021-05-16 08:30] VITALS: BP 94/68
[2021-05-16] MEDS: ALBUTEROL SULF HFA 90MCG INH 200DOSE IN SCH ×3 (09:51→22:04)
[2021-05-16] MEDS: DexAMETHasone SOD PHOS 10MG/1ML VIAL INJ IV SCH (10:41)
[2021-05-16] MEDS: SODIUM CHLOR 0.9% PF (SALINE LOCK) 10ML VIAL/SYR IV SCH ×2 (10:41→21:03)
[2021-05-16] MEDS: PANTOPRAZOLE 40 MG TAB PO SCH (10:42)
[2021-05-16] MEDS: METHADONE HCL 10 MG TAB PO SCH (10:42)
[2021-05-16] MEDS: ENOXAPARIN SOD 40 MG/0.4 ML SYRINGE SC SCH (10:43)
[2021-05-16] MEDS: QUEtiapine FUMARATE 25 MG TAB PO SCH ×2 (10:43→21:02)
[2021-05-16 12:30] VITALS: BP 95/64
[2021-05-16 17:00] VITALS: BP 105/68
[2021-05-16 22:00] VITALS: BP 126/75
[2021-05-17 05:00] VITALS: BP 108/76
[2021-05-17 06:15] LABS: Hematocrit 43.9 % (41.0-53.0); Hemoglobin 14.8 g/dL (13.5-17.5); Mean Corpuscular Hemoglobin 31.8 pg (28.0-32.0); Mean Corpuscular Hgb Conc. 33.8 g/dL (32.0-36.0); Mean Corpuscular Volume 94.2 fL (80.0-100.0); Red Blood Cells 4.66 10^6/uL (4.5-5.90); Red Cell Distribution Width 13.4 % (11.8-14.3); White Blood Cell 11.8 10^3/uL (4.4-10.8)
[2021-05-17 06:19] LABS: Band Neutrophils % (manual) 0; Basophils % (manual) 0 (0.0-2.0); Blast Cells 0; Metamyelocytes % 0; Myelocytes % 0; Promyelocytes % 0; Reactive Lymphocytes 0
[2021-05-17 06:37] LABS: Calcium 8.4 mg/dL (8.5-10.1); Magnesium 2.2 mg/dL (1.6-2.6); Potassium 3.4 mmol/L (3.5-5.1)
[2021-05-17 06:39] LABS: BUN/Creatinine Ratio 31.3
[2021-05-17] MEDS: ALBUTEROL SULF HFA 90MCG INH 200DOSE IN SCH ×3 (07:03→22:00)
[2021-05-17 07:32] LABS: Eosinophils % (manual) 6 (0-7); Lymphocytes % (manual) 20 (10.0-50.0); Monocytes % (manual) 5 (0-12)
[2021-05-17 08:27] VITALS: BP 108/68
[2021-05-17] MEDS: METHADONE HCL 10 MG TAB PO SCH (10:12)
[2021-05-17] MEDS: PANTOPRAZOLE 40 MG TAB PO SCH (10:13)
[2021-05-17] MEDS: QUEtiapine FUMARATE 25 MG TAB PO SCH ×2 (10:13→21:42)
[2021-05-17] MEDS: DexAMETHasone SOD PHOS 10MG/1ML VIAL INJ IV SCH (10:13)
[2021-05-17] MEDS: SODIUM CHLOR 0.9% PF (SALINE LOCK) 10ML VIAL/SYR IV SCH ×2 (10:14→21:54)
[2021-05-17] MEDS: ENOXAPARIN SOD 40 MG/0.4 ML SYRINGE SC SCH (10:18)
[2021-05-17 12:06] VITALS: BP 101/68
[2021-05-17 17:04] VITALS: BP 111/58
[2021-05-17 22:00] VITALS: BP 113/88
[2021-05-18 05:00] VITALS: BP 103/60
[2021-05-18] MEDS: ALBUTEROL SULF HFA 90MCG INH 200DOSE IN SCH ×3 (06:00→21:43)
[2021-05-18] MEDS: DexAMETHasone SOD PHOS 10MG/1ML VIAL INJ IV SCH (08:44)
[2021-05-18] MEDS: ENOXAPARIN SOD 40 MG/0.4 ML SYRINGE SC SCH (08:44)
[2021-05-18] MEDS: QUEtiapine FUMARATE 25 MG TAB PO SCH ×2 (08:44→22:59)
[2021-05-18] MEDS: PANTOPRAZOLE 40 MG TAB PO SCH (08:44)
[2021-05-18] MEDS: METHADONE HCL 10 MG TAB PO SCH (08:44)
[2021-05-18] MEDS: SODIUM CHLOR 0.9% PF (SALINE LOCK) 10ML VIAL/SYR IV SCH ×2 (08:45→22:00)
[2021-05-18 09:00] VITALS: BP 112/73
[2021-05-18 13:00] VITALS: BP 119/64
[2021-05-18 14:58] VITALS: BP 119/64
[2021-05-18 17:00] VITALS: BP 124/70
[2021-05-18 22:00] VITALS: BP 103/66
[2021-05-19 05:00] VITALS: BP 104/70
[2021-05-19 06:51] LABS: Basophils # (auto) 0.1 10 ^3/uL (0-0.2); Basophils % (auto) 0.6 % (0.0-2.0); Eosinophils # (auto) 0.8 10 ^3/uL (0-0.8); Hematocrit 41.4 % (41.0-53.0); Lymphocytes # (auto) 2.1 10 ^3/uL (0.4-5.4); Mean Corpuscular Hemoglobin 31.8 pg (28.0-32.0); Mean Corpuscular Hgb Conc. 33.8 g/dL (32.0-36.0); Monocytes # (auto) 0.7 10 ^3/uL (0-1.3); Monocytes % (auto) 6.2 % (0.0-12.0); Neutrophils # (auto) 6.9 10 ^3/uL (1.6-8.6); Neutrophils % (auto) 65.2 % (37.0-80.0); Nucleated Red Blood Cells % 0.1 %; Red Blood Cells 4.41 10^6/uL (4.5-5.90); Red Cell Distribution Width 13.5 % (11.8-14.3); White Blood Cell 10.6 10^3/uL (4.4-10.8)
[2021-05-19] MEDS: ALBUTEROL SULF HFA 90MCG INH 200DOSE IN SCH ×3 (07:05→22:00)
[2021-05-19 07:13] LABS: Anion Gap 6 (5-15); BUN/Creatinine Ratio 23.5; Blood Urea Nitrogen 12 mg/dL (7-18); Calcium 8.1 mg/dL (8.5-10.1); Carbon Dioxide 28 mmol/L (21-32); Chloride 104 mmol/L (98-107); GFR African American 211 mL/min; GFR Non-African American 174 mL/min; Glucose 100 mg/dL (74-106); Potassium 4.3 mmol/L (3.5-5.1); Sodium 138 mmol/L (136-145)
[2021-05-19] MEDS: METHADONE HCL 10 MG TAB PO SCH (08:40)
[2021-05-19] MEDS: DexAMETHasone SOD PHOS 10MG/1ML VIAL INJ IV SCH (08:40)
[2021-05-19] MEDS: QUEtiapine FUMARATE 25 MG TAB PO SCH ×2 (08:41→21:30)
[2021-05-19] MEDS: PANTOPRAZOLE 40 MG TAB PO SCH (08:41)
[2021-05-19] MEDS: ENOXAPARIN SOD 40 MG/0.4 ML SYRINGE SC SCH (08:41)
[2021-05-19 09:00] VITALS: BP 107/77
[2021-05-19] MEDS: SODIUM CHLOR 0.9% PF (SALINE LOCK) 10ML VIAL/SYR IV SCH ×2 (10:00→21:30)
[2021-05-19 13:00] VITALS: BP 104/64
[2021-05-19 17:00] VITALS: BP 107/63
[2021-05-19 22:00] VITALS: BP 100/79
[2021-05-20 05:00] VITALS: BP 103/68
[2021-05-20 07:07] LABS: Basophils # (auto) 0.1 10 ^3/uL (0-0.2); Basophils % (auto) 0.7 % (0.0-2.0); Eosinophils # (auto) 0.8 10 ^3/uL (0-0.8); Eosinophils % (auto) 7.6 % (0.0-7.0); Hematocrit 41.3 % (41.0-53.0); Lymphocytes # (auto) 2.1 10 ^3/uL (0.4-5.4); Lymphocytes % (auto) 20.1 % (10.0-50.0); Mean Corpuscular Hemoglobin 31.8 pg (28.0-32.0); Mean Corpuscular Hgb Conc. 33.9 g/dL (32.0-36.0); Mean Corpuscular Volume 93.9 fL (80.0-100.0); Monocytes # (auto) 0.6 10 ^3/uL (0-1.3); Neutrophils # (auto) 6.8 10 ^3/uL (1.6-8.6); Neutrophils % (auto) 65.6 % (37.0-80.0); Nucleated Red Blood Cells % 0.1 %; Red Cell Distribution Width 13.5 % (11.8-14.3); White Blood Cell 10.4 10^3/uL (4.4-10.8)
[2021-05-20 07:13] LABS: Potassium 3.5 mmol/L (3.5-5.1)
[2021-05-20 07:21] LABS: BUN/Creatinine Ratio 24.1; Calcium 8.7 mg/dL (8.5-10.1)
[2021-05-20 09:00] VITALS: BP 105/71
[2021-05-20] MEDS: ALBUTEROL SULF HFA 90MCG INH 200DOSE IN SCH ×3 (09:32→22:00)
[2021-05-20] MEDS: PANTOPRAZOLE 40 MG TAB PO SCH (09:35)
[2021-05-20] MEDS: METHADONE HCL 10 MG TAB PO SCH (09:35)
[2021-05-20] MEDS: DexAMETHasone SOD PHOS 10MG/1ML VIAL INJ IV SCH (09:35)
[2021-05-20] MEDS: QUEtiapine FUMARATE 25 MG TAB PO SCH ×2 (09:36→20:50)
[2021-05-20] MEDS: ENOXAPARIN SOD 40 MG/0.4 ML SYRINGE SC SCH (09:36)
[2021-05-20] MEDS: SODIUM CHLOR 0.9% PF (SALINE LOCK) 10ML VIAL/SYR IV SCH ×2 (09:37→20:49)
[2021-05-20 13:00] VITALS: BP 122/77
[2021-05-20 17:00] VITALS: BP 108/74
[2021-05-21 06:00] VITALS: BP 106/54
[2021-05-21 06:08] LABS: Basophils # (auto) 0.1 10 ^3/uL (0-0.2); Basophils % (auto) 0.6 % (0.0-2.0); Eosinophils # (auto) 0.9 10 ^3/uL (0-0.8); Eosinophils % (auto) 7.7 % (0.0-7.0); Hematocrit 41.6 % (41.0-53.0); Hemoglobin 14.1 g/dL (13.5-17.5); Lymphocytes # (auto) 2.3 10 ^3/uL (0.4-5.4); Lymphocytes % (auto) 19.1 % (10.0-50.0); Mean Corpuscular Hemoglobin 31.9 pg (28.0-32.0); Mean Corpuscular Volume 93.7 fL (80.0-100.0); Monocytes # (auto) 0.8 10 ^3/uL (0-1.3); Monocytes % (auto) 6.6 % (0.0-12.0); Nucleated Red Blood Cells % 0.1 %; Red Blood Cells 4.44 10^6/uL (4.5-5.90); Red Cell Distribution Width 13.3 % (11.8-14.3); White Blood Cell 12.1 10^3/uL (4.4-10.8)
[2021-05-21 06:46] LABS: Potassium 3.7 mmol/L (3.5-5.1)
[2021-05-21 06:53] LABS: BUN/Creatinine Ratio 26.3; Calcium 8.7 mg/dL (8.5-10.1)
[2021-05-21] MEDS: DexAMETHasone SOD PHOS 10MG/1ML VIAL INJ IV SCH (08:20)
[2021-05-21] MEDS: PANTOPRAZOLE 40 MG TAB PO SCH (08:21)
[2021-05-21] MEDS: ENOXAPARIN SOD 40 MG/0.4 ML SYRINGE SC SCH (08:21)
[2021-05-21] MEDS: QUEtiapine FUMARATE 25 MG TAB PO SCH ×2 (08:21→21:51)
[2021-05-21] MEDS: SODIUM CHLOR 0.9% PF (SALINE LOCK) 10ML VIAL/SYR IV SCH ×2 (08:58→21:51)
[2021-05-21 09:00] VITALS: BP 108/72
[2021-05-21] MEDS: METHADONE HCL 10 MG TAB PO SCH (12:41)
[2021-05-21 12:55] VITALS: BP 118/70
[2021-05-21 17:00] VITALS: BP 130/79
[2021-05-21 22:00] VITALS: BP 115/73
[2021-05-22 05:00] VITALS: BP 130/82
[2021-05-22 09:00] VITALS: BP 130/89
[2021-05-22] MEDS: METHADONE HCL 10 MG TAB PO SCH (09:27)
[2021-05-22] MEDS: QUEtiapine FUMARATE 25 MG TAB PO SCH ×2 (09:28→22:26)
[2021-05-22] MEDS: ENOXAPARIN SOD 40 MG/0.4 ML SYRINGE SC SCH (09:28)
[2021-05-22] MEDS: DexAMETHasone SOD PHOS 10MG/1ML VIAL INJ IV SCH (09:28)
[2021-05-22] MEDS: PANTOPRAZOLE 40 MG TAB PO SCH (09:28)
[2021-05-22] MEDS: SODIUM CHLOR 0.9% PF (SALINE LOCK) 10ML VIAL/SYR IV SCH ×2 (09:29→22:26)
[2021-05-22 13:00] VITALS: BP 105/71
[2021-05-22 16:58] VITALS: BP 112/76
[2021-05-22 22:00] VITALS: BP 113/57
[2021-05-23 05:00] VITALS: BP 109/71
[2021-05-23] MEDS: PANTOPRAZOLE 40 MG TAB PO SCH (08:54)
[2021-05-23] MEDS: METHADONE HCL 10 MG TAB PO SCH (08:54)
[2021-05-23] MEDS: DexAMETHasone SOD PHOS 10MG/1ML VIAL INJ IV SCH (08:54)
[2021-05-23] MEDS: SODIUM CHLOR 0.9% PF (SALINE LOCK) 10ML VIAL/SYR IV SCH (08:54)
[2021-05-23] MEDS: QUEtiapine FUMARATE 25 MG TAB PO SCH (08:55)
[2021-05-23] MEDS: ENOXAPARIN SOD 40 MG/0.4 ML SYRINGE SC SCH (08:55)
[2021-05-23 09:00] VITALS: BP 112/74
[2021-05-23 13:00] VITALS: BP 124/71
[2021-05-23 16:02] VITALS: BP 109/71
[2021-05-23 16:50] VITALS: BP 140/79
== END 2021-05-23 19:48 | disposition home or self-care (01) | DRG 720 ==
LOC: EDBD 09:35 → ER 09:35 → DOU IN ADS 15:44 → TELE 21:56 → ICU WEST 05-04 04:33 → TELE-EAST 05-13 13:20 → TELE-CENTR 05-20 18:45
PROVIDERS: ADMIT Internal Medicine; ATTEND Internal Medicine
PROC: XW033E5 Introduction of Remdesivir Anti-infective into Peripheral Vein, Percutaneous Approach, New Technology Group 5 (ICD-10-PCS; principal; 2021-05-01)
PROC: 05HB33Z Insertion of Infusion Device into Right Basilic Vein, Percutaneous Approach (ICD-10-PCS; 2021-05-01)
PROC: B54MZZA Ultrasonography of Right Upper Extremity Veins, Guidance (ICD-10-PCS; 2021-05-01)
PROC: 5A1955Z Respiratory Ventilation, Greater than 96 Consecutive Hours (ICD-10-PCS; 2021-05-02)
PROC: 5A09357 Assistance with Respiratory Ventilation, Less than 24 Consecutive Hours, Continuous Positive Airway Pressure (ICD-10-PCS; 2021-05-02)
PROC: 05HM33Z Insertion of Infusion Device into Right Internal Jugular Vein, Percutaneous Approach (ICD-10-PCS; 2021-05-02)
PROC: B543ZZA Ultrasonography of Right Jugular Veins, Guidance (ICD-10-PCS; 2021-05-02)
PROC: 0BH17EZ Insertion of Endotracheal Airway into Trachea, Via Natural or Artificial Opening (ICD-10-PCS; 2021-05-02)
PROC: 02HV33Z Insertion of Infusion Device into Superior Vena Cava, Percutaneous Approach (ICD-10-PCS; 2021-05-05)
DX: A41.89 Other specified sepsis (principal); J96.01 Acute respiratory failure with hypoxia; J12.82 Pneumonia due to coronavirus disease 2019; G92 Toxic encephalopathy; R65.21 Severe sepsis with septic shock; U07.1 COVID-19; J98.11 Atelectasis; E87.6 Hypokalemia; F11.20 Opioid dependence, uncomplicated; F91.9 Conduct disorder, unspecified; Z79.899 Other long term (current) drug therapy; Z71.51 Drug abuse counseling and surveillance of drug abuser
CPT/HCPCS: 36415; 36569; 36600; 71045; 71275; 80048; 80053; 81001; 82728; 82805; 82962; 83605; 83735; 84132; 84484; 85007; 85025; 85027; 85379; 85610; 85730; 86141; 87040; 87070; 87081; 87205; 87426; 93005; 93970; 94002; 94003; 94640; 96365; 96372; 96375; 97110; 97116; 97163; 97530; 99291; G0378; J0330; J0696; J1100; J2250; J2405; J2704; J3480; J3490; J7060

== ENCOUNTER 2021-05-23 22:23 | Emergency (ER) | payer MEDICAID ==
[~2021-05-23] VITALS: Ht 172.7 cm; Wt 81.6 kg
[~2021-05-23 22:23] MED LIST: FAMO40TA7 PO
[2021-05-25 11:55] VITALS: BP 107/63
== END 2021-05-25 13:39 | disposition home or self-care (01) ==
LOC: ER 22:23
DX: R09.02 Hypoxemia (principal)
CPT/HCPCS: 71045

== ENCOUNTER 2022-08-22 19:25 | Emergency (ER) | payer MEDICAID ==
[~2022-08-22] VITALS: Ht 170.2 cm; Wt 86.0 kg
[2022-08-22] MEDS ORDERED: MORPHINE SULFATE 4 MG/ML SYR/VIAL IV ONE (20:15)
[2022-08-22] MEDS ORDERED: ONDANSETRON HCL 4 MG/2 ML VIAL IV ONE (20:15)
[2022-08-22 21:17] LABS: Basophils # (auto) 0 10 ^3/uL (0-0.2); Basophils % (auto) 0.4 % (0.0-2.0); Eosinophils # (auto) 0.2 10 ^3/uL (0-0.8); Eosinophils % (auto) 2.1 % (0.0-7.0); Hematocrit 46.2 % (41.0-53.0); Hemoglobin 15.3 g/dL (13.5-17.5); Lymphocytes # (auto) 2.6 10 ^3/uL (0.4-5.4); Lymphocytes % (auto) 33.6 % (10.0-50.0); Mean Corpuscular Hemoglobin 30.2 pg (28.0-32.0); Mean Corpuscular Volume 91.5 fL (80.0-100.0); Monocytes # (auto) 0.5 10 ^3/uL (0-1.3); Monocytes % (auto) 7.2 % (0.0-12.0); Neutrophils # (auto) 4.4 10 ^3/uL (1.6-8.6); Neutrophils % (auto) 56.7 % (37.0-80.0); Nucleated Red Blood Cells % 0.1 %; Red Blood Cells 5.05 10^6/uL (4.5-5.90); Red Cell Distribution Width 13.1 % (11.8-14.3); White Blood Cell 7.7 10^3/uL (4.4-10.8)
[2022-08-22 21:32] LABS: Partial Thromboplastin Time 25.6 sec (24.6-33.4)
[2022-08-22 21:35] LABS: Alanine Aminotransferase 40 U/L (16-61); Albumin 3.7 g/dL (3.4-5.0); Anion Gap 6 (5-15); Aspartate Aminotransferase 46 U/L (15-37); BUN/Creatinine Ratio 13.5; Blood Urea Nitrogen 10 mg/dL (7-18); Calcium 8.4 mg/dL (8.5-10.1); Carbon Dioxide 25 mmol/L (21-32); Chloride 106 mmol/L (98-107); GFR African American 137 mL/min; GFR Non-African American 113 mL/min; Glucose 96 mg/dL (74-106); Sodium 137 mmol/L (136-145)
[2022-08-22 21:38] LABS: Alkaline Phosphatase 113 U/L (45-117); Bilirubin, Total 0.4 mg/dL (0.2-1.0); Total Protein 8.2 g/dL (6.4-8.2)
[2022-08-22 23:50] VITALS: BP 136/86
== END 2022-08-23 02:47 | disposition short-term general hospital (02) ==
LOC: ER 19:27
DX: S02.31XA Fracture of orbital floor, right side, initial encounter for closed fracture (principal); H11.31 Conjunctival hemorrhage, right eye; H05.20 Unspecified exophthalmos; Z79.899 Other long term (current) drug therapy; Y04.2XXA Assault by strike against or bumped into by another person, initial encounter; Y93.89 Activity, other specified; Y92.89 Other specified places as the place of occurrence of the external cause; Y99.8 Other external cause status
CPT/HCPCS: 36415; 70450; 70480; 80053; 85025; 85610; 85730; 96374; 96375; 99285; J2270; J2405

== ENCOUNTER 2023-06-10 16:38 | Emergency (ER) | payer MEDICAID ==
[~2023-06-10] VITALS: Ht 172.7 cm; Wt 91.2 kg
[2023-06-10 18:52] LABS: Basophils # (auto) 0 10 ^3/uL (0-0.2); Basophils % (auto) 0.4 % (0.0-2.0); Eosinophils # (auto) 0.3 10 ^3/uL (0-0.8); Eosinophils % (auto) 3.6 % (0.0-7.0); Hematocrit 45.1 % (41.0-53.0); Lymphocytes # (auto) 3.4 10 ^3/uL (0.4-5.4); Lymphocytes % (auto) 43.1 % (10.0-50.0); Mean Corpuscular Hemoglobin 32.2 pg (28.0-32.0); Mean Corpuscular Hgb Conc. 33.3 g/dL (32.0-36.0); Mean Corpuscular Volume 96.6 fL (80.0-100.0); Monocytes # (auto) 0.8 10 ^3/uL (0-1.3); Monocytes % (auto) 9.9 % (0.0-12.0); Neutrophils # (auto) 3.4 10 ^3/uL (1.6-8.6); Nucleated Red Blood Cells % 0.1 %; Red Blood Cells 4.67 10^6/uL (4.5-5.90); Red Cell Distribution Width 13.1 % (11.8-14.3); White Blood Cell 7.9 10^3/uL (4.4-10.8)
[2023-06-10 19:07] LABS: Alanine Aminotransferase 64 U/L (7-40); Albumin 4.6 g/dL (3.2-4.8); Alkaline Phosphatase 122 U/L (46-116); Anion Gap 8 (5-15); Aspartate Aminotransferase 72 U/L (13-40); Blood Urea Nitrogen 8 mg/dL (9-23); Calcium 8.6 mg/dL (8.7-10.4); Carbon Dioxide 27 mmol/L (20-30); Chloride 103 mmol/L (98-107); Glucose 74 mg/dL (74-106); Lipase 50 U/L (12-53); Potassium 3.9 mmol/L (3.5-5.1); Sodium 138 mmol/L (136-145)
[2023-06-10 19:08] LABS: Bilirubin, Total 0.6 mg/dL (0.2-1.0); Total Protein 7.3 g/dL (5.7-8.2)
[2023-06-10 19:39] LABS: Lactic Acid w/Reflex 2.3 mmol/L (0.4-2.0)
[2023-06-10] MEDS ORDERED: HYDROcodone-ACET 5/325MG TAB PO ONE (20:00)
[2023-06-10 20:06] VITALS: BP 118/86; PULSE 73; RESP 17; TEMP 97.9; O2SAT 95
[2023-06-10 20:48] LABS: Urine Bacteria MOD /hpf (None Seen); Urine Blood Negative /uL (Negative); Urine Clarity Clear (Clear); Urine Color Colorless (Yellow); Urine Protein, UAD Negative (Negative); Urine Specific Gravity 1.006 (1.001-1.035); Urine WBC 2 /hpf (0 - 3)
== END 2023-06-10 23:42 | disposition home or self-care (01) ==
LOC: ER 16:38
DX: K43.9 Ventral hernia without obstruction or gangrene (principal); I10 Essential (primary) hypertension; E78.5 Hyperlipidemia, unspecified; Z79.899 Other long term (current) drug therapy; Z86.73 Personal history of transient ischemic attack (TIA), and cerebral infarction without residual deficits
CPT/HCPCS: 36415; 74176; 80053; 81001; 83605; 83690; 84484; 85025

== ENCOUNTER 2023-10-03 20:57 | Inpatient (IN) | payer MEDICAID ==
[~2023-10-03] VITALS: Ht 162.6 cm; Wt 97.2 kg
[2023-10-03 21:21] VITALS: PULSE 96; RESP 16; O2SAT 94
[2023-10-03] MEDS ORDERED: ALBUTEROL SULF 2.5 MG/0.5ML(0.5%) NEB SOLN NEB ONE (21:30)
[2023-10-03] MEDS ORDERED: AZITHROMYCIN 500MG/ 250ML 250 ML IV ONE (21:30)
[2023-10-03] MEDS ORDERED: methylPREDNISolone SOD SUCC 125 MG/2 ML VL IV ONE (21:30)
[2023-10-03] MEDS ORDERED: cefTRIAXone 1GM/50ML D5W 50 ML IV ONE (21:30)
[2023-10-03 21:35] LABS: Basophils # (auto) 0 10 ^3/uL (0-0.2); Basophils % (auto) 0.2 % (0.0-2.0); Eosinophils # (auto) 0 10 ^3/uL (0-0.8); Eosinophils % (auto) 0.3 % (0.0-7.0); Hematocrit 47.5 % (41.0-53.0); Hemoglobin 15.8 g/dL (13.5-17.5); Lymphocytes # (auto) 1.2 10 ^3/uL (0.4-5.4); Lymphocytes % (auto) 12.3 % (10.0-50.0); Mean Corpuscular Hemoglobin 32.5 pg (28.0-32.0); Mean Corpuscular Hgb Conc. 33.3 g/dL (32.0-36.0); Mean Corpuscular Volume 97.5 fL (80.0-100.0); Monocytes # (auto) 0.6 10 ^3/uL (0-1.3); Monocytes % (auto) 5.8 % (0.0-12.0); Neutrophils # (auto) 8.2 10 ^3/uL (1.6-8.6); Neutrophils % (auto) 81.4 % (37.0-80.0); Red Blood Cells 4.87 10^6/uL (4.5-5.90); Red Cell Distribution Width 13.1 % (11.8-14.3)
[2023-10-03 21:37] VITALS: O2SAT 93
[2023-10-03 21:49] LABS: Alanine Aminotransferase 37 U/L (7-40); Albumin 4.3 g/dL (3.2-4.8); Alkaline Phosphatase 106 U/L (46-116); Anion Gap 7 (5-15); Aspartate Aminotransferase 55 U/L (13-40); Calcium 8.7 mg/dL (8.7-10.4); Carbon Dioxide 27 mmol/L (20-30); Chloride 100 mmol/L (98-107); Glucose 93 mg/dL (74-106); Magnesium 1.6 mg/dL (1.6-2.6); Potassium 3.5 mmol/L (3.5-5.1); Sodium 134 mmol/L (136-145)
[2023-10-03 21:50] LABS: BUN/Creatinine Ratio 6.4 (10.0-20.0); Bilirubin, Total 1.1 mg/dL (0.2-1.0); Blood Urea Nitrogen < 5 mg/dL (9-23); INR 1.1 (0.9-1.15); Partial Thromboplastin Time 26.9 SEC (24.5-34.5); Prothrombin Time 11.5 sec (9.3-11.8)
[2023-10-03 22:12] LABS: Rapid Influenza A Negative (Negative); Rapid Influenza B Negative (Negative)
[2023-10-03 22:13] LABS: COVID19 ANTIGEN SOFIA FIA NEGATIVE (NEGATIVE)
[2023-10-03 22:32] LABS: Lactic Acid w/Reflex 2.4 mmol/L (0.4-2.0)
[2023-10-03] MEDS ORDERED: ALBUTEROL SULF 2.5 MG/0.5ML(0.5%) NEB SOLN NEB PRN (23:45)
[2023-10-03] MEDS ORDERED: IPRATROPIUM BROM 0.5 MG/2.5ML INH SOL NEB PRN (23:45)
[2023-10-04] MEDS ORDERED: HYDROcodone-ACET 5/325MG TAB PO PRN
[2023-10-04] MEDS ORDERED: ACETAMINOPHEN 325 MG TAB PO PRN
[2023-10-04] MEDS ORDERED: MAALOX PLUS or MAALOX 30 ML PO PRN
[2023-10-04] MEDS ORDERED: DOCUSATE SOD 100 MG CAP PO PRN
[2023-10-04 02:03] VITALS: BP 136/99; PULSE 83; RESP 18; O2SAT 93
[2023-10-04] MEDS ORDERED: hydrALAZINE HCL 20 MG/ML VL IV PRN (03:15)
[2023-10-04 03:39] LABS: Urine Epithelial Cast None Seen /hpf (<5)
[2023-10-04 03:44] LABS: Urine Bacteria NONE SEEN /hpf (None Seen); Urine Blood Negative /uL (Negative); Urine Clarity Clear (Clear); Urine Color Yellow (Yellow); Urine Hyaline Cast FEW /lpf (0 - 2); Urine Mucus FEW (None Seen); Urine Protein, UAD Negative (Negative); Urine Specific Gravity 1.015 (1.001-1.035); Urine WBC 2 /hpf (0 - 3); Urine pH 6.5 (5.0-8.0)
[2023-10-04 06:10] LABS: Basophils # (auto) 0 10 ^3/uL (0-0.2); Basophils % (auto) 0.5 % (0.0-2.0); Eosinophils # (auto) 0 10 ^3/uL (0-0.8); Hematocrit 44.8 % (41.0-53.0); Lymphocytes # (auto) 1.1 10 ^3/uL (0.4-5.4); Lymphocytes % (auto) 16.6 % (10.0-50.0); Mean Corpuscular Hemoglobin 32.6 pg (28.0-32.0); Mean Corpuscular Hgb Conc. 33.6 g/dL (32.0-36.0); Monocytes # (auto) 0.2 10 ^3/uL (0-1.3); Monocytes % (auto) 2.4 % (0.0-12.0); Neutrophils # (auto) 5.4 10 ^3/uL (1.6-8.6); Neutrophils % (auto) 80.5 % (37.0-80.0); Nucleated Red Blood Cells % 0.2 %; Red Blood Cells 4.62 10^6/uL (4.5-5.90); Red Cell Distribution Width 13.1 % (11.8-14.3); White Blood Cell 6.7 10^3/uL (4.4-10.8)
[2023-10-04 06:11] LABS: Chloride 101 mmol/L (98-107); Potassium 3.5 mmol/L (3.5-5.1); Sodium 135 mmol/L (136-145)
[2023-10-04 06:12] LABS: Anion Gap 9 (5-15); Carbon Dioxide 25 mmol/L (20-30)
[2023-10-04 06:13] LABS: Calcium 8.7 mg/dL (8.7-10.4)
[2023-10-04 06:17] LABS: Glucose 153 mg/dL (74-106)
[2023-10-04 06:18] LABS: BUN/Creatinine Ratio 8.1 (10.0-20.0); Blood Urea Nitrogen 7 mg/dL (9-23)
[2023-10-04 07:01] VITALS: O2SAT 93
[2023-10-04] MEDS ORDERED: cefTRIAXone 1GM/50ML D5W 50 ML IV SCH (09:00)
[2023-10-04] MEDS ORDERED: methylPREDNISolone SOD SUCC 125 MG/2 ML VL IV SCH ×2 (10:00→22:00)
[2023-10-04] MEDS ORDERED: AZITHROMYCIN 500MG/ 250ML 250 ML IV SCH ×2 (10:00→23:00)
[2023-10-04] MEDS ORDERED: METH10T PO (11:21)
[2023-10-04] MEDS: MORPHINE SULFATE INJ 2 MG/ml SYRG IV PRN ×3 (11:35→22:08)
[2023-10-04] MEDS: LISINOPRIL 20 MG TAB PO SCH (11:35)
[2023-10-04] MEDS: ONDANSETRON HCL 4 MG/2 ML VIAL IV PRN ×2 (11:36→16:17)
[2023-10-04] MEDS ORDERED: DOXYCYCLINE 100MG/250ML 250 ML IV SCH (14:00)
[2023-10-04] MEDS: cefTRIAXone 1GM/50ML D5W 50 ML IV SCH (22:07)
[2023-10-04] MEDS: FAMOTIDINE 20 MG TAB PO SCH (22:07)
[2023-10-04] MEDS: DOXYCYCLINE 100MG/250ML 250 ML IV SCH (22:09)
[2023-10-04] MEDS: methylPREDNISolone SOD SUCC 125 MG/2 ML VL IV SCH (22:10)
[2023-10-04] MEDS: IPRATROPIUM BROM 0.5 MG/2.5ML INH SOL NEB SCH (22:31)
[2023-10-04 22:32] VITALS: PULSE 73; RESP 16; O2SAT 93
[2023-10-04] MEDS: ALBUTEROL SULF 2.5 MG/0.5ML(0.5%) NEB SOLN NEB SCH (22:32)
[2023-10-04] MEDS: BUDESONIDE (INHALATION) 0.5 MG/2 ML NEB NEB SCH (22:32)
[2023-10-04 22:42] VITALS: PULSE 70; RESP 16; O2SAT 99
[2023-10-05] VITALS (13 sets, daily range): BP systolic 118–149; BP diastolic 69–96; PULSE 65–94; RESP 17–20; TEMP 97.6–98.9; O2SAT 91–99
[2023-10-05] MEDS: MORPHINE SULFATE INJ 2 MG/ml SYRG IV PRN ×2 (02:31→06:40)
[2023-10-05] MEDS: methylPREDNISolone SOD SUCC 125 MG/2 ML VL IV SCH ×4 (04:06→21:13)
[2023-10-05] MEDS: ALBUTEROL SULF 2.5 MG/0.5ML(0.5%) NEB SOLN NEB SCH ×3 (07:52→22:00)
[2023-10-05] MEDS: IPRATROPIUM BROM 0.5 MG/2.5ML INH SOL NEB SCH ×3 (07:52→22:00)
[2023-10-05] MEDS: BUDESONIDE (INHALATION) 0.5 MG/2 ML NEB NEB SCH ×2 (07:52→22:00)
[2023-10-05] MEDS: DOXYCYCLINE 100MG/250ML 250 ML IV SCH ×2 (11:20→21:00)
[2023-10-05] MEDS: FAMOTIDINE 20 MG TAB PO SCH ×2 (11:20→21:13)
[2023-10-05] MEDS: ENOXAPARIN SOD 40 MG/0.4 ML SYRINGE SC SCH (11:21)
[2023-10-05] MEDS: LISINOPRIL 20 MG TAB PO SCH (11:21)
[2023-10-05] MEDS: METHADONE HCL 10 MG TAB PO SCH (11:21)
[2023-10-05] MEDS: cefTRIAXone 1GM/50ML D5W 50 ML IV SCH (22:52)
[2023-10-06] VITALS (10 sets, daily range): BP systolic 121–152; BP diastolic 77–108; PULSE 71–83; RESP 17–22; TEMP 98.1–98.9; O2SAT 93–100
[2023-10-06] MEDS: methylPREDNISolone SOD SUCC 125 MG/2 ML VL IV SCH ×3 (03:57→16:01)
[2023-10-06] MEDS: ALBUTEROL SULF 2.5 MG/0.5ML(0.5%) NEB SOLN NEB SCH (06:23)
[2023-10-06] MEDS: IPRATROPIUM BROM 0.5 MG/2.5ML INH SOL NEB SCH (06:24)
[2023-10-06] MEDS: BUDESONIDE (INHALATION) 0.5 MG/2 ML NEB NEB SCH (06:26)
[2023-10-06] MEDS: DOXYCYCLINE 100MG/250ML 250 ML IV SCH (10:04)
[2023-10-06] MEDS: LISINOPRIL 20 MG TAB PO SCH (10:05)
[2023-10-06] MEDS: FAMOTIDINE 20 MG TAB PO SCH (10:05)
[2023-10-06] MEDS: ENOXAPARIN SOD 40 MG/0.4 ML SYRINGE SC SCH (10:05)
[2023-10-06] MEDS: METHADONE HCL 10 MG TAB PO SCH (10:05)
[2023-10-06] MEDS ORDERED: ALBUTEROL SULF 2.5 MG/0.5ML(0.5%) NEB SOLN NEB PRN (13:00)
[2023-10-06] MEDS ORDERED: IPRATROPIUM BROM 0.5 MG/2.5ML INH SOL NEB PRN (13:00)
[2023-10-06] MEDS ORDERED: DOXY-286 PO (14:52)
[2023-10-06] MEDS ORDERED: IPRA0.00 IN (14:52)
[2023-10-06] MEDS ORDERED: FAMO-161 PO (14:52)
[2023-10-06] MEDS ORDERED: PRED20TA2 PO (14:52)
[2023-10-06] MEDS: MORPHINE SULFATE INJ 2 MG/ml SYRG IV PRN (16:12)
[2023-10-06] MEDS ORDERED: DOXYCYCLINE 100 MG TAB/CAP PO SCH (22:00)
== END 2023-10-06 18:50 | disposition home health service (06) | DRG 139 ==
LOC: EDBD 20:57 → ER 20:57 → TELE 23:48 → TELE-CENTR 10-05 00:30
PROVIDERS: ADMIT Hospitalist; ATTEND Hospitalist
DX: J18.9 Pneumonia, unspecified organism (principal); J96.01 Acute respiratory failure with hypoxia; E87.20 Acidosis, unspecified; I10 Essential (primary) hypertension; Z20.822 Contact with and (suspected) exposure to COVID-19; Z87.891 Personal history of nicotine dependence; Z86.16 Personal history of COVID-19
CPT/HCPCS: 36415; 36600; 71045; 80048; 80053; 81001; 82805; 83605; 83735; 83880; 84484; 85025; 85610; 85730; 87040; 87340; 87426; 87804; 93005; 94640; 97163; G0378; J2405; J3490

== ENCOUNTER 2024-01-03 22:19 | Inpatient (IN) | payer MEDICAID ==
[~2024-01-03] VITALS: Ht 170.2 cm; Wt 98.2 kg
[~2024-01-03 22:19] MED LIST changes: +DOXY-286 PO; +FAMO-161 PO; +IPRA0.00 IN; +METH-1214 PO; +PRED20TA2 PO
[2024-01-03 22:45] LABS: Urine Bacteria None Seen /hpf (None Seen)
[2024-01-03 23:02] LABS: Urine Blood Negative /uL (Negative); Urine Clarity Clear (Clear); Urine Color Light-Yellow (Yellow); Urine Protein, UAD Negative (Negative); Urine Specific Gravity 1.015 (1.001-1.035); Urine Urobilinogen 2 mg/dL (Negative); Urine WBC <1 /hpf (0 - 3); Urine pH 6.5 (5.0-9.0)
[2024-01-03 23:10] VITALS: PULSE 88; RESP 22; O2SAT 96
[2024-01-03 23:41] LABS: Basophils # (auto) 0.1 10 ^3/uL (0-0.2); Basophils % (auto) 0.5 % (0.0-2.0); Eosinophils # (auto) 0 10 ^3/uL (0-0.8); Eosinophils % (auto) 0.1 % (0.0-7.0); Hematocrit 39.8 % (41.0-53.0); Hemoglobin 13.1 g/dL (13.5-17.5); Lymphocytes # (auto) 2.2 10 ^3/uL (0.4-5.4); Lymphocytes % (auto) 14.1 % (10.0-50.0); Mean Corpuscular Hemoglobin 30.2 pg (28.0-32.0); Mean Corpuscular Volume 91.5 fL (80.0-100.0); Monocytes # (auto) 1.2 10 ^3/uL (0-1.3); Monocytes % (auto) 7.7 % (0.0-12.0); Neutrophils % (auto) 77.6 % (37.0-80.0); Red Blood Cells 4.35 10^6/uL (4.5-5.90); Red Cell Distribution Width 13.7 % (11.8-14.3); White Blood Cell 15.5 10^3/uL (4.4-10.8)
[2024-01-03 23:57] LABS: Alanine Aminotransferase 23 U/L (7-40); Albumin 4.1 g/dL (3.2-4.8); Alkaline Phosphatase 94 U/L (46-116); Anion Gap 9 (5-15); Aspartate Aminotransferase 31 U/L (13-40); BUN/Creatinine Ratio 8.1 (10.0-20.0); Blood Urea Nitrogen 7 mg/dL (9-23); Carbon Dioxide 24 mmol/L (20-30); Chloride 101 mmol/L (98-107); Glucose 91 mg/dL (74-106); Magnesium 1.6 mg/dL (1.6-2.6); Potassium 3.4 mmol/L (3.5-5.1); Sodium 134 mmol/L (136-145)
[2024-01-03 23:58] LABS: Bilirubin, Total 1.1 mg/dL (0.2-1.0); Total Protein 7.5 g/dL (5.7-8.2)
[2024-01-04] VITALS (11 sets, daily range): BP systolic 128–164; BP diastolic 68–91; PULSE 55–77; RESP 9–18; TEMP 97.3–98.7; O2SAT 95–99
[2024-01-04] MEDS: IOHEXOL 350 MG/ML 100ML IJ ONE (03:52)
[2024-01-04] MEDS: methylPREDNISolone SOD SUCC 125 MG/2 ML VL IV ONE (03:52)
[2024-01-04] MEDS: SODIUM CHLORIDE 0.9% 1,000 ML IV ONE (03:52)
[2024-01-04] MEDS: cefTRIAXone 1GM/50ML D5W 50 ML IV ONE (03:52)
[2024-01-04] MEDS: ACETAMINOPHEN 325 MG TAB PO ONE (03:57)
[2024-01-04] MEDS: ALBUTEROL SULF 2.5 MG/0.5ML(0.5%) NEB SOLN HHN ONE (04:01)
[2024-01-04] MEDS: IPRATROPIUM BROM 0.5 MG/2.5ML INH SOL HHN ONE (04:01)
[2024-01-04 04:33] LABS: Amphetamine Screen, Urine Neg (NEGATIVE)
[2024-01-04 04:34] LABS: Barbiturate Scree,Urine Neg (NEGATIVE); Benzodiazephine Screen, Urine Neg (NEGATIVE); Cannabinoid Screen, Urine Neg (NEGATIVE); Cocaine Screen, Urine Neg (NEGATIVE); Opiate Scree,Urine Neg (NEGATIVE); Phencyclidine Screen, Urine Neg (NEGATIVE)
[2024-01-04] MEDS: DOXYCYCLINE 100MG/250ML 250 ML IV ONE (04:49)
[2024-01-04] MEDS ORDERED: ONDANSETRON HCL 4 MG/2 ML VIAL IV PRN (06:30)
[2024-01-04] MEDS ORDERED: TEMAZEPAM 15 MG CAP PO PRN (06:30)
[2024-01-04 08:05] LABS: COVID19 ANTIGEN SOFIA FIA NEGATIVE (NEGATIVE); Rapid Influenza A Negative (Negative); Rapid Influenza B Negative (Negative)
[2024-01-04] MEDS: LISINOPRIL 20 MG TAB PO SCH (09:34)
[2024-01-04] MEDS: POTASSIUM EFFERVESENT TAB 25 MEQ PO ONE (10:43)
[2024-01-04] MEDS: ALBUTEROL SULF 2.5 MG/0.5ML(0.5%) NEB SOLN NEB PRN (12:24)
[2024-01-04] MEDS: ACETAMINOPHEN 325 MG TAB PO PRN (15:29)
[2024-01-04] MEDS ORDERED: METH5TAB10 PO ×2 (16:22)
[2024-01-04] MEDS: DOXYCYCLINE 100MG/250ML 250 ML IV SCH (16:50)
[2024-01-04] MEDS: METHADONE HCL 10 MG TAB PO ONE (16:55)
[2024-01-05] VITALS (9 sets, daily range): BP systolic 101–118; BP diastolic 56–78; PULSE 55–75; RESP 17–19; TEMP 97.5–97.9; O2SAT 95–99
[2024-01-05 06:41] LABS: Chloride 103 mmol/L (98-107); Potassium 3.9 mmol/L (3.5-5.1); Sodium 135 mmol/L (136-145)
[2024-01-05 06:42] LABS: Anion Gap 8 (5-15); Calcium 9.2 mg/dL (8.7-10.4); Carbon Dioxide 24 mmol/L (20-30)
[2024-01-05 06:47] LABS: BUN/Creatinine Ratio 22.1 (10.0-20.0); Blood Urea Nitrogen 17 mg/dL (9-23); Glucose 120 mg/dL (74-106)
[2024-01-05 06:58] LABS: Basophils # (auto) 0 10 ^3/uL (0-0.2); Basophils % (auto) 0.1 % (0.0-2.0); Eosinophils # (auto) 0 10 ^3/uL (0-0.8); Hemoglobin 12.8 g/dL (13.5-17.5); Lymphocytes # (auto) 2.4 10 ^3/uL (0.4-5.4); Lymphocytes % (auto) 14.1 % (10.0-50.0); Mean Corpuscular Hemoglobin 30.3 pg (28.0-32.0); Mean Corpuscular Hgb Conc. 32.7 g/dL (32.0-36.0); Mean Corpuscular Volume 92.6 fL (80.0-100.0); Monocytes # (auto) 1.3 10 ^3/uL (0-1.3); Monocytes % (auto) 7.6 % (0.0-12.0); Neutrophils # (auto) 13.6 10 ^3/uL (1.6-8.6); Neutrophils % (auto) 78.2 % (37.0-80.0); Nucleated Red Blood Cells % 0.1 %; Red Blood Cells 4.22 10^6/uL (4.5-5.90); Red Cell Distribution Width 13.5 % (11.8-14.3); White Blood Cell 17.3 10^3/uL (4.4-10.8)
[2024-01-05] MEDS: FUROSEMIDE 20 MG/2 ML VIAL IV ONE (06:58)
[2024-01-05] MEDS ORDERED: PNEUMOCOCCAL VACC POLYS 25 MCG/0.5 ML VIAL IM ONE (07:30)
[2024-01-05] MEDS ORDERED: VANCOMYCIN PER PHARMACY 0 MG IV SCH (09:00)
[2024-01-05] MEDS ORDERED: AZITHROMYCIN 500MG/ 250ML 250 ML IV SCH (10:00)
[2024-01-05] MEDS: cefTRIAXone 1GM/50ML D5W 50 ML IV SCH (10:27)
[2024-01-05] MEDS: METHADONE HCL 10 MG TAB PO SCH (10:31)
[2024-01-05] MEDS: VANCOMYCIN 1GM/200ML 200 ML IV SCH (11:18)
[2024-01-05] MEDS ORDERED: LISI40TA16 PO (13:57)
[2024-01-05] MEDS: DOXYCYCLINE 100MG/250ML 250 ML IV SCH (16:40)
[2024-01-06] VITALS (10 sets, daily range): BP systolic 99–116; BP diastolic 55–70; PULSE 56–67; RESP 17–18; TEMP 98–98.1; O2SAT 94–100
[2024-01-06 06:44] LABS: Basophils # (auto) 0.1 10 ^3/uL (0-0.2); Basophils % (auto) 0.6 % (0.0-2.0); Eosinophils # (auto) 0.2 10 ^3/uL (0-0.8); Eosinophils % (auto) 2.3 % (0.0-7.0); Hematocrit 39.2 % (41.0-53.0); Hemoglobin 12.8 g/dL (13.5-17.5); Lymphocytes # (auto) 2.8 10 ^3/uL (0.4-5.4); Lymphocytes % (auto) 30.1 % (10.0-50.0); Mean Corpuscular Hemoglobin 30.7 pg (28.0-32.0); Mean Corpuscular Hgb Conc. 32.6 g/dL (32.0-36.0); Mean Corpuscular Volume 94.2 fL (80.0-100.0); Monocytes # (auto) 0.9 10 ^3/uL (0-1.3); Monocytes % (auto) 9.8 % (0.0-12.0); Neutrophils # (auto) 5.3 10 ^3/uL (1.6-8.6); Neutrophils % (auto) 57.2 % (37.0-80.0); Nucleated Red Blood Cells % 0.1 %; Red Blood Cells 4.16 10^6/uL (4.5-5.90); Red Cell Distribution Width 13.9 % (11.8-14.3); White Blood Cell 9.2 10^3/uL (4.4-10.8)
[2024-01-06 06:54] LABS: Calcium 8.9 mg/dL (8.7-10.4); Chloride 104 mmol/L (98-107); Potassium 3.7 mmol/L (3.5-5.1); Sodium 135 mmol/L (136-145)
[2024-01-06 06:55] LABS: Anion Gap 7 (5-15); Carbon Dioxide 24 mmol/L (20-30)
[2024-01-06 07:00] LABS: BUN/Creatinine Ratio 23.4 (10.0-20.0); Blood Urea Nitrogen 22 mg/dL (9-23); Glucose 90 mg/dL (74-106)
[2024-01-06] MEDS: VANCOMYCIN 1GM/200ML 200 ML IV SCH (22:53)
[2024-01-07] VITALS (10 sets, daily range): BP systolic 110–131; BP diastolic 61–78; PULSE 63–72; RESP 16–20; TEMP 97.5–98.2; O2SAT 95–97
[2024-01-07 06:38] LABS: Chloride 106 mmol/L (98-107); Potassium 4.2 mmol/L (3.5-5.1); Sodium 138 mmol/L (136-145)
[2024-01-07 06:39] LABS: Anion Gap 5 (5-15); Calcium 8.6 mg/dL (8.5-10.1); Carbon Dioxide 27 mmol/L (20-30)
[2024-01-07 06:44] LABS: Glucose 89 mg/dL (74-106)
[2024-01-07 06:45] LABS: BUN/Creatinine Ratio 25.8 (10.0-20.0); Blood Urea Nitrogen 17 mg/dL (9-23); LDL Cholesterol 81 mg/dL (< 100); Triglycerides 79 mg/dL (< 150)
[2024-01-07 06:46] LABS: Cholesterol 141 mg/dL (< 200); HDL Cholesterol 51 mg/dL (40-59)
[2024-01-07 06:51] LABS: Basophils # (auto) 0 10 ^3/uL (0-0.2); Basophils % (auto) 0.4 % (0.0-2.0); Eosinophils # (auto) 0.3 10 ^3/uL (0-0.8); Hematocrit 37.6 % (41.0-53.0); Hemoglobin 12.6 g/dL (13.5-17.5); Lymphocytes # (auto) 2.1 10 ^3/uL (0.4-5.4); Lymphocytes % (auto) 30.7 % (10.0-50.0); Mean Corpuscular Hemoglobin 31.2 pg (28.0-32.0); Mean Corpuscular Hgb Conc. 33.4 g/dL (32.0-36.0); Mean Corpuscular Volume 93.4 fL (80.0-100.0); Monocytes # (auto) 0.8 10 ^3/uL (0-1.3); Monocytes % (auto) 12.4 % (0.0-12.0); Neutrophils # (auto) 3.5 10 ^3/uL (1.6-8.6); Neutrophils % (auto) 52.5 % (37.0-80.0); Nucleated Red Blood Cells % 0.1 %; Red Blood Cells 4.02 10^6/uL (4.5-5.90); Red Cell Distribution Width 13.8 % (11.8-14.3); White Blood Cell 6.7 10^3/uL (4.4-10.8)
[2024-01-07 07:38] LABS: Magnesium 1.8 mg/dL (1.6-2.6)
[2024-01-07] MEDS: FUROSEMIDE 20 MG/2 ML VIAL IV SCH (08:55)
[2024-01-07] MEDS: DOXYCYCLINE 100 MG TAB/CAP PO SCH (08:57)
[2024-01-07 09:10] LABS: Large Platelets FEW; Platelet Estimate Decreased; RBC Morphology Normal
[2024-01-07] MEDS: ATORVASTATIN 20 MG TAB PO SCH (21:44)
[2024-01-08] VITALS (8 sets, daily range): BP systolic 106–127; BP diastolic 60–77; PULSE 63–80; RESP 16–18; TEMP 96.8–98.1; O2SAT 93–98
[2024-01-08 06:02] LABS: Basophils # (auto) 0 10 ^3/uL (0-0.2); Basophils % (auto) 0.4 % (0.0-2.0); Eosinophils # (auto) 0.3 10 ^3/uL (0-0.8); Eosinophils % (auto) 4.9 % (0.0-7.0); Hematocrit 38.8 % (41.0-53.0); Hemoglobin 12.9 g/dL (13.5-17.5); Lymphocytes # (auto) 2.3 10 ^3/uL (0.4-5.4); Lymphocytes % (auto) 37.1 % (10.0-50.0); Mean Corpuscular Hemoglobin 31.1 pg (28.0-32.0); Mean Corpuscular Hgb Conc. 33.1 g/dL (32.0-36.0); Mean Corpuscular Volume 93.9 fL (80.0-100.0); Monocytes # (auto) 0.8 10 ^3/uL (0-1.3); Monocytes % (auto) 12.7 % (0.0-12.0); Neutrophils # (auto) 2.8 10 ^3/uL (1.6-8.6); Neutrophils % (auto) 44.9 % (37.0-80.0); Nucleated Red Blood Cells % 0.1 %; Red Blood Cells 4.14 10^6/uL (4.5-5.90); White Blood Cell 6.2 10^3/uL (4.4-10.8)
[2024-01-08 06:21] LABS: Alanine Aminotransferase 22 U/L (7-40); Albumin 3.8 g/dL (3.2-4.8); Alkaline Phosphatase 92 U/L (46-116); Anion Gap 3 (5-15); Aspartate Aminotransferase 22 U/L (13-40); BUN/Creatinine Ratio 16.9 (10.0-20.0); Bilirubin, Total 0.3 mg/dL (0.2-1.0); Blood Urea Nitrogen 11 mg/dL (9-23); Carbon Dioxide 29 mmol/L (20-30); Chloride 106 mmol/L (98-107); Glucose 88 mg/dL (74-106); Potassium 3.9 mmol/L (3.5-5.1); Sodium 138 mmol/L (136-145)
[2024-01-08 06:22] LABS: Total Protein 6.6 g/dL (5.7-8.2)
[2024-01-08] MEDS: ALBUTEROL SULF 2.5 MG/0.5ML(0.5%) NEB SOLN NEB PRN (07:01)
[2024-01-08] MEDS ORDERED: traMADol HCL 50 MG TAB PO PRN (08:45)
[2024-01-08] MEDS ORDERED: ATOR40TA52 PO (11:58)
[2024-01-08] MEDS ORDERED: CEPH250C PO (11:58)
[2024-01-08] MEDS: PNEUMOCOCCAL VACC POLYS 25 MCG/0.5 ML VIAL IM ONE (15:27)
== END 2024-01-08 16:02 | disposition home or self-care (01) | DRG 720 ==
LOC: ER 22:19 → EDBD 22:19 → OVERFLOW 01-04 06:23 → TELE-WESTW 01-04 11:00
PROVIDERS: ADMIT Internal Medicine Pulmonary Disease; ATTEND Internal Medicine Pulmonary Disease
DX: A40.9 Streptococcal sepsis, unspecified (principal); J96.21 Acute and chronic respiratory failure with hypoxia; I50.33 Acute on chronic diastolic (congestive) heart failure; J15.69 Pneumonia due to other Gram-negative bacteria; J15.9 Unspecified bacterial pneumonia; E87.1 Hypo-osmolality and hyponatremia; I11.0 Hypertensive heart disease with heart failure; Z20.822 Contact with and (suspected) exposure to COVID-19; E78.5 Hyperlipidemia, unspecified; E66.9 Obesity, unspecified; Z68.34 Body mass index [BMI] 34.0-34.9, adult
CPT/HCPCS: 36415; 36600; 71275; 80048; 80053; 80061; 80202; 80307; 80320; 81001; 82805; 83036; 83605; 83735; 83880; 84443; 84484; 85025; 87040; 87077; 87081; 87086; 87186; 87426; 87804; 93005; 93306; 94640; G0378; J3490

== ENCOUNTER 2024-04-12 19:02 | Emergency (ER) | payer MEDICAID ==
[~2024-04-12] VITALS: Ht 172.7 cm; Wt 90.9 kg
[~2024-04-12 19:02] MED LIST changes: +ATOR40TA52 PO; +CEPH250C PO; -DOXY-286 PO; -FAMO-161 PO; +LISI40TA16 PO; -METH-1214 PO; +METH5TAB10 PO; -PRED20TA2 PO
[2024-04-12 19:07] VITALS: BP 122/73; PULSE 76; RESP 18; O2SAT 95
[2024-04-12 19:38] LABS: Basophils # (auto) 0 10 ^3/uL (0-0.2); Basophils % (auto) 0.3 % (0.0-2.0); Eosinophils # (auto) 0.3 10 ^3/uL (0-0.8); Eosinophils % (auto) 4.7 % (0.0-7.0); Hematocrit 40.7 % (41.0-53.0); Hemoglobin 13.8 g/dL (13.5-17.5); Lymphocytes # (auto) 3.2 10 ^3/uL (0.4-5.4); Lymphocytes % (auto) 43.6 % (10.0-50.0); Mean Corpuscular Hemoglobin 31.5 pg (28.0-32.0); Mean Corpuscular Hgb Conc. 33.8 g/dL (32.0-36.0); Mean Corpuscular Volume 93.2 fL (80.0-100.0); Monocytes # (auto) 0.6 10 ^3/uL (0-1.3); Monocytes % (auto) 8.6 % (0.0-12.0); Neutrophils # (auto) 3.1 10 ^3/uL (1.6-8.6); Neutrophils % (auto) 42.8 % (37.0-80.0); Nucleated Red Blood Cells % 0.1 %; Red Blood Cells 4.37 10^6/uL (4.5-5.90); Red Cell Distribution Width 12.9 % (11.8-14.3); White Blood Cell 7.2 10^3/uL (4.4-10.8)
[2024-04-12 19:58] LABS: INR 1.02 (0.9-1.15); Partial Thromboplastin Time 24.6 SEC (24.5-34.5); Prothrombin Time 10.8 sec (9.3-11.8)
[2024-04-12 20:04] LABS: Alanine Aminotransferase 30 U/L (7-40); Alkaline Phosphatase 119 U/L (46-116); Anion Gap 6 (5-15); Aspartate Aminotransferase 31 U/L (13-40); BUN/Creatinine Ratio 7.5 (10.0-20.0); Blood Urea Nitrogen 6 mg/dL (9-23); Calcium 8.7 mg/dL (8.7-10.4); Carbon Dioxide 28 mmol/L (20-30); Chloride 108 mmol/L (98-107); Glucose 91 mg/dL (74-106); Magnesium 2.1 mg/dL (1.6-2.6); Potassium 3.9 mmol/L (3.5-5.1); Sodium 142 mmol/L (136-145)
[2024-04-12 20:05] LABS: Bilirubin, Total 0.4 mg/dL (0.2-1.0); Total Protein 7.1 g/dL (5.7-8.2)
== END 2024-04-12 21:16 | disposition left against medical advice (07) ==
LOC: ER 19:02 → EDBD 19:02 → ER 21:14
DX: R07.89 Other chest pain (principal); R06.02 Shortness of breath; E78.5 Hyperlipidemia, unspecified; I10 Essential (primary) hypertension; K21.9 Gastro-esophageal reflux disease without esophagitis; Z87.891 Personal history of nicotine dependence
CPT/HCPCS: 36415; 80053; 83605; 83735; 83880; 84484; 85025; 85379; 85610; 85730; 93005; 99284; J7040

== ENCOUNTER 2024-08-03 17:10 | Inpatient (IN) | payer MEDICAID ==
[~2024-08-03] VITALS: Ht 172.7 cm; Wt 91.0 kg
--- NOTE | 2024-08-03 17:30 | ED.PDOC ---
SOB-HPI HPI Comments HPI: Poor Historian. 64-year-old male brought in by ambulance from home for evaluation of shortness of breath. He states that his shortness of breath is what he feels but he denies any specific chest pain. Patient uses oxygen at home 2-3 L nasal cannula for history of CHF. Patient is extremely poor historian. Patient has not been taking his medications for awhile. He does not know what medications he is supposed to be on. Patient described "chest pain" as "lung pain" Patient was found hypertensive and with a SpO2 of 97% on his 3LPM home O2 and lungs clear bilaterally Patient was given 324mg ASA by EMS staff en route Vitals on scene, respiratory rate of 18, SpO2 of 97% on 3LPM, pulse rate of 88, and a blood pressure of 157/88 Vitals on arrival: respiratory rate of, SpO2 of 97% on 3LPM, pulse rate of 88, and a blood pressure of PMHx: CHF, HTN, current abdominal hernia PSHx: abdominal Sx REVIEW OF SYSTEMS: CONSTITUTIONAL: Denies acute: fever, diaphoresis, chills, generalized weakness. HEAD: Denies acute: headache, photophobia Eyes: Denies acute: Double vision, vision loss, eye pain, eye discharge. EARS: Denies acute: tinnitus, hearing loss, ear discharge, ear pain, THROAT: Denies acute: sore throat, swelling, difficulty swallowing , pain with swallowing, change in voice. NECK: Denies acute: neck pain, neck swelling, stiff neck. HEART: Denies acute : palpitations, LUNGS: Denies acute: wheezing, cough, hemoptysis ABDOMEN: Denies acute: abdominal pain, Nausea, Vomiting, diarrhea, melena , hematemesis, hematochezia SKIN: Denies acute: rash, redness, lesions, itchiness. EXTREMITIES: Denies acute: calf pain, numbness, tingling, weakness, denies pain in extremity. Denies acute: Low back pain. Neuro: Denies acute: focal neurological deficit, motor or sensory focal neurological deficit, tremors, seizure like activity, confusion, dizziness, change in mental status, loss of bowel or bladder function, cauda equina like symptoms. : Denies acute: dysuria, hematuria, flank pain, increase in urinary frequency. PSYCH: Denies acute: hallucination, suicidal ideation, homicidal ideation. PHYSICAL EXAM: General: no acute distress, awake and alert. Head: normocephalic, atraumatic. Neck: supple, trachea is midline, no swelling. Throat: Normal phonation. Eyes:, no erythema, no purulent discharge, no proptosis, no icterus. Heart: regular rate, regular rhythm, no significant murmur appreciated. Lungs: no apparent respiratory distress, Able to speak in full sentences. No wheezing, no rhonchi, no crackles. No stridors Clear to auscultation bilaterally. Abdomen: non tender to palpation, non distended, soft, no guarding, no rebound, + bowel sounds. Neuro: Awake, Alert, oriented to name, self, situation, follows commands GCS=15. Speech is normal. Skin: no petechia, no purpura, no cyanosis, non-pale, not jaundice. Lower extremities: --trace b/l - Pitting edema no deformity, no focal swelling, no calf TTP. Makes eye contact. moves all four extremities. Face: no apparent facial droop. Time Seen by MD: 17:20 Primary Care Provider: NIKOLAI Reviewed notes: Nurses Notes, Master Mechanic Notes, Allergies Information Source: Patient Was a procedure done? Was a procedure done?: No Differential Dx Differential Diagnosis: Other (DDx include ACS, unstable angina, anxiety, PE, pneumothroax, neoplasm, cardiac ischemia, COPD, asthma, CHF, pleural effusion, tobacco abuse, pneumonia, hypoxia, hypercapnia, anemia., infection/sepsis., pulmonary edema. Asthma, Cardiac tamponade, infection.) X-Ray, Labs, Meds, VS Vital Signs Date Time Temp Pulse Resp B/P (MAP) Pulse Ox O2 Delivery O2 Flow Rate FiO2 08/03/24 18:57 97.9 86 20 157/88 (111) 97 08/03/24 18:33 77 Lab Test 08/03/24 18:40 08/03/24 17:39 Range/Units Troponin I High Sensitivity 3 L 3 L </=54 ng/L White Blood Count 7.8 4.4-10.8 10^3/uL Red Blood Count 4.67 4.5-5.90 10^6/uL Hemoglobin 14.2 13.5-17.5 g/dL Hematocrit 42.8 41.0-53.0 % Mean Corpuscular Volume 91.8 80.0-100.0 fL Mean Corpuscular Hemoglobin 30.5 28.0-32.0 pg Mean Corpuscular Hemoglobin Concent 33.3 32.0-36.0 g/dL Red Cell Distribution Width 12.9 11.8-14.3 % Platelet Count 100 L 140-450 10^3/uL Mean Platelet Volume 11.4 H 6.9-10.8 fL Neutrophils (%) (Auto) 46.8 37.0-80.0 % Lymphocytes (%) (Auto) 40.6 10.0-50.0 % Monocytes (%) (Auto) 8.4 0.0-12.0 % Eosinophils (%) (Auto) 3.8 0.0-7.0 % Basophils (%) (Auto) 0.4 0.0-2.0 % Neutrophils # (Auto) 3.6 1.6-8.6 10 ^3/uL Lymphocytes # (Auto) 3.2 0.4-5.4 10 ^3/uL Monocytes # (Auto) 0.7 0-1.3 10 ^3/uL Eosinophils # (Auto) 0.3 0-0.8 10 ^3/uL Basophils # (Auto) 0 0-0.2 10 ^3/uL Nucleated Red Blood Cells 0.1 % Platelet Estimate Decreased Large Platelets Few Sodium Level 143 136-145 mmol/L Potassium Level 3.7 3.5-5.1 mmol/L Chloride Level 106 98-107 mmol/L Carbon Dioxide Level 26 20-31 mmol/L Anion Gap 11 5-15 Blood Urea Nitrogen 7 L 9-23 mg/dL Creatinine 0.73 0.700-1.30 mg/dL Glomerular Filtration Rate Calc 100 >90 mL/min BUN/Creatinine Ratio 9.6 L 10.0-20.0 Serum Glucose 90 74-106 mg/dL Calcium Level 9.1 8.7-10.4 mg/dL Magnesium Level 2.1 1.6-2.6 mg/dL Total Bilirubin 0.4 0.2-1.0 mg/dL Aspartate Amino Transferase (AST) 23 13-40 U/L Alanine Aminotransferase (ALT) 15 7-40 U/L Alkaline Phosphatase 114 46-116 U/L B-Type Natriuretic Peptide 45.61 0-100 pg/mL Total Protein 7.5 5.7-8.2 g/dL Albumin 4.3 3.2-4.8 g/dL [facility] [id number] [place] [address] Ph: [phone] DIAGNOSTIC IMAGING Diagnostic Imaging Report : [id number] Signed PATIENT: REINIER CHILDS ACCT: [id number] UNIT: [id number] : 1960 LOC: ER ROOM / BED: / AGE / SEX: 64 / M ADM STATUS: REG ER SERVICE 23 ORDERING PHYSICIAN: TRENA MORE DO PROCEDURE(s): CXRP - CHEST PORTABLE REASON: CP SOB ORDER NUMBER(s): [id number], ACCESSION NUMBER(s): [id number] EXAM: XR Chest, 1 View CLINICAL INDICATION: CP SOB TECHNIQUE: Frontal view of the chest. COMPARISON: XY CHEST PORTABLE on DOS: 01/03/24, XY CHEST PORTABLE on DOS: 10/03/23, CHEST XRAY 1 VIEW on DOS: 05/24/21 FINDINGS: LUNGS AND PLEURAL SPACES: See below. HEART: Cardiomegaly with mild congestion. MEDIASTINUM: Unremarkable. Normal mediastinal contour. BONES/JOINTS: Unremarkable. No acute fracture. OTHER FINDINGS: . . IMPRESSION: Cardiomegaly with mild congestion. HS:Y ATED BY: MARCO MACKEY MD DICTATED DATE/TIME: 08/03/241757 SIGNED BY: MARCO MACKEY MD SIGNED DATE/TIME: 08/03/241757 CC: Time of 1ST Reevaluation: 17:20 Reevaluation 1ST: Unchanged Patient Education/Counseling: Diagnosis, Treatment Family Education/Counseling: No Family Present Comments Patient presented with the above HPI.------workup was initiated. patient was found with the above mentioned diagnosis. Patient was given: Lasix Patient ED course and VS have been stabilized. Patient has been reassessed in the ED and remained in a stable condition. Pertinent incidental findings were discussed with the patient and/or family. Patient/family voices understanding and is agreeable with plan. Patient has been observed in the ED adequate length of time to insure improvement/stability. patient was admitted to the medicine team for further evaluation and treatment of their presentation. All the reports of any imaging studies that were ordered by myself were reviewed by myself. Departure 1 Departure Time of Disposition: 18:30 Impression: Primary Impression: Dyspnea Additional Impressions: CHF exacerbation Chest pain Disposition: ADMITTED INPATIENT Admit to: Tele Condition: Guarded Discharged With: Self Critical Care Note Critical Care Time?: No Heart Score Heart Score: Heart Score Response (Comments) Value History Moderate Suspicious 1 EKG Normal 0 Age >65 2 Risk Factors >3 or Hx ASHD 2 Troponin Normal limit 0 Total 5 I personally scribed for TRENA MORE DO ([email or web address]) on 08/03/24 at 17:30. Electronically submitted by Jr Ferguson ([email or web address]). I personally scribed for TRENA MORE DO ([email or web address]) on 08/03/24 at 18:59. Electronically submitted by Jr Ferguson ([email or web address]). TRENA MORE DO Aug 03, 2024 17:30
--- NOTE | 2024-08-03 18:01 | DVH ---
EXAM: XR Chest, 1 View CLINICAL INDICATION: CP SOB TECHNIQUE: Frontal view of the chest. COMPARISON: XY CHEST PORTABLE on DOS: 01/03/24, XY CHEST PORTABLE on DOS: 10/03/23, CHEST XRAY 1 VIEW on DOS: 05/24/21 FINDINGS: LUNGS AND PLEURAL SPACES: See below. HEART: Cardiomegaly with mild congestion. MEDIASTINUM: Unremarkable. Normal mediastinal contour. BONES/JOINTS: Unremarkable. No acute fracture. OTHER FINDINGS: . . IMPRESSION: Cardiomegaly with mild congestion. HS:Y
[2024-08-03 18:27] LABS: Alanine Aminotransferase 15 U/L (7-40); Albumin 4.3 g/dL (3.2-4.8); Alkaline Phosphatase 114 U/L (46-116); Anion Gap 11 (5-15); Aspartate Aminotransferase 23 U/L (13-40); BUN/Creatinine Ratio 9.6 (10.0-20.0); Bilirubin, Total 0.4 mg/dL (0.2-1.0); Blood Urea Nitrogen 7 mg/dL (9-23); Calcium 9.1 mg/dL (8.7-10.4); Carbon Dioxide 26 mmol/L (20-31); Chloride 106 mmol/L (98-107); Glucose 90 mg/dL (74-106); Magnesium 2.1 mg/dL (1.6-2.6); Potassium 3.7 mmol/L (3.5-5.1); Sodium 143 mmol/L (136-145); Total Protein 7.5 g/dL (5.7-8.2)
--- NOTE | 2024-08-03 18:50 | ECG ---
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
[2024-08-03 18:56] LABS: Basophils # (auto) 0 10 ^3/uL (0-0.2); Basophils % (auto) 0.4 % (0.0-2.0); Eosinophils # (auto) 0.3 10 ^3/uL (0-0.8); Eosinophils % (auto) 3.8 % (0.0-7.0); Hematocrit 42.8 % (41.0-53.0); Hemoglobin 14.2 g/dL (13.5-17.5); Lymphocytes # (auto) 3.2 10 ^3/uL (0.4-5.4); Lymphocytes % (auto) 40.6 % (10.0-50.0); Mean Corpuscular Hemoglobin 30.5 pg (28.0-32.0); Mean Corpuscular Hgb Conc. 33.3 g/dL (32.0-36.0); Mean Corpuscular Volume 91.8 fL (80.0-100.0); Monocytes # (auto) 0.7 10 ^3/uL (0-1.3); Monocytes % (auto) 8.4 % (0.0-12.0); Neutrophils # (auto) 3.6 10 ^3/uL (1.6-8.6); Neutrophils % (auto) 46.8 % (37.0-80.0); Nucleated Red Blood Cells % 0.1 %; Platelet Count (auto) 100 10^3/uL (140-450); Red Blood Cells 4.67 10^6/uL (4.5-5.90); Red Cell Distribution Width 12.9 % (11.8-14.3); White Blood Cell 7.8 10^3/uL (4.4-10.8)
[2024-08-03 20:24] LABS: Large Platelets FEW; Platelet Estimate Decreased
[2024-08-03] MEDS ORDERED: HYDROcodone-ACET 5/325MG TAB PO PRN (20:45)
[2024-08-03] MEDS ORDERED: MORPHINE SULFATE INJ 2 MG/ml SYRG IV PRN (20:45)
[2024-08-03] MEDS ORDERED: NITROGLYCERIN 0.4 MG SL TAB SL PRN (20:45)
[2024-08-03] MEDS ORDERED: ONDANSETRON HCL 4 MG/2 ML VIAL IV PRN (20:45)
--- NOTE | 2024-08-03 22:24 | DVHHPRES ---
History of Present Illness Resident Creating Document: HAKEEM MARI RESIDENT History of Present Illness This is a 64-year-old male with past medical history of hypertension, hyperlipidemia, CHF with 3L home oxygen presented to the ED with a chief complaint of shortness of Breath associated with diffuse nonspecific chest pain since morning prior to this admission. Patient states that since morning he started having chest pain which is diffuse throbbing pain, 5/10 and associated with dizziness, diaphoresis and shortness of breath. The patient denies abdominal pain, nausea, vomiting 1 sick contact, recent traveling or any change in bowel and bladder habit. Cardiovascular: CHF, HTN, hyperipidemia Past Surgical History Head surgery, laparotomy and hernia repair Family History Type 2 diabetes mellitus runs in family Past Social History Former smoker , used to smoke 1 pack/day for 30 years, occasional drinker and never tried any drugs Review of Systems Constitutional: No: Fever, Chills, Sweats, Weakness, Malaise, Other Eyes: No: Pain, Vision change, Conjunctivae inflammation, Eyelid inflammation, Other, Redness ENT: No: Ear pain, Ear discharge, Nose pain, Nose discharge, Nose congestion, Mouth pain, Mouth swelling, Throat pain, Throat swelling, Other Respiratory: Shortness of breath, SOB with excertion Cardiovascular: Chest Pain, Lt Headedness; No: Palpitations, Orthopnea, Paroxysmal Noc. Dyspnea, Edema, Other Gastrointestinal: No: Nausea, Vomiting, Abdominal Pain, Diarrhea, Constipation, Melena, Hematochezia, Other Genitourinary: No Dysuria, No Frequency, No Incontinence, No Hematuria, No Retention, No Other Musculoskeletal: No: other, neck pain, shoulder pain, arm pain, back pain, hand pain, leg pain, foot pain Skin: No: Rash, Lesions, Jaundice, Bruising, Other Neurological: No: Weakness, Numbness, Incoordination, Change in speech, Confusion, Seizures, Other Allergies: Coded Allergies: NO KNOWN ALLERGIES (Unverified , 04/30/21) Medications Current Medications Medications Dose Ordered Sig/Jan Route Start Time Stop Time Status Last Admin Dose Admin Sodium Chloride 10 ml Q8HR IV 08/03/24 22:00 Acetaminophen/ Hydrocodone Bitart 1 tab Q4HP PRN PO 08/03/24 20:45 Ondansetron HCl 4 mg Q4HP PRN IV 08/03/24 20:45 Nitroglycerin 0.4 mg Q5MINP PRN SL 08/03/24 20:45 Morphine Sulfate 2 mg Q30M PRN IV 08/03/24 20:45 Furosemide 20 mg DAILY IV 08/04/24 10:00 Atorvastatin Calcium 40 mg HS PO 08/04/24 22:00 Lisinopril 40 mg DAILY PO 08/04/24 10:00 Albuterol 2.5 mg Q4HPRN PRN NEB 08/03/24 22:30 Ipratropium [place] 0.5 mg Q4HPRN PRN NEB 08/03/24 22:30 Exam Vital Signs Vital Signs Date Time Temp Pulse Resp B/P (MAP) Pulse Ox O2 Delivery O2 Flow Rate FiO2 08/03/24 18:57 97.9 86 20 157/88 (111) 97 Exam Physical examination: General Appearance: Alert, Oriented X3, Cooperative, No acute distress HEENT: Atraumatic, PERRLA, EOMI, Mucous membrane moist/pink Respiratory: Mild crackles in bilateral lung field. Cardiovascular: Regular rate, Normal S1, Normal S2, No murmurs, no chest wall tenderness Abdominal: Normal bowel sounds, Soft, No tenderness, No hepatospenomegaly, No m asses Extremities: No clubbing, No cyanosis, No edema, Normal pulses, No tenderness/swelling Skin: No rashes, No breakdown, No significant lesion Neuro: Normal gait, Normal speech, Strength at 5/5 X4 ext, Normal tone, Sensation intact, grossly intact cranial nerves. Psych/Mental Status: Mental status NL, Mood NL Labs/Xrays Labs Test 08/03/24 20:41 08/03/24 17:39 Range/Units Troponin I High Sensitivity 3 L </=54 ng/L White Blood Count 7.8 4.4-10.8 10^3/uL Red Blood Count 4.67 4.5-5.90 10^6/uL Hemoglobin 14.2 13.5-17.5 g/dL Hematocrit 42.8 41.0-53.0 % Mean Corpuscular Volume 91.8 80.0-100.0 fL Mean Corpuscular Hemoglobin 30.5 28.0-32.0 pg Mean Corpuscular Hemoglobin Concent 33.3 32.0-36.0 g/dL Red Cell Distribution Width 12.9 11.8-14.3 % Platelet Count 100 L 140-450 10^3/uL Mean Platelet Volume 11.4 H 6.9-10.8 fL Neutrophils (%) (Auto) 46.8 37.0-80.0 % Lymphocytes (%) (Auto) 40.6 10.0-50.0 % Monocytes (%) (Auto) 8.4 0.0-12.0 % Eosinophils (%) (Auto) 3.8 0.0-7.0 % Basophils (%) (Auto) 0.4 0.0-2.0 % Neutrophils # (Auto) 3.6 1.6-8.6 10 ^3/uL Lymphocytes # (Auto) 3.2 0.4-5.4 10 ^3/uL Monocytes # (Auto) 0.7 0-1.3 10 ^3/uL Eosinophils # (Auto) 0.3 0-0.8 10 ^3/uL Basophils # (Auto) 0 0-0.2 10 ^3/uL Nucleated Red Blood Cells 0.1 % Platelet Estimate Decreased Large Platelets Few Sodium Level 143 136-145 mmol/L Potassium Level 3.7 3.5-5.1 mmol/L Chloride Level 106 98-107 mmol/L Carbon Dioxide Level 26 20-31 mmol/L Anion Gap 11 5-15 Blood Urea Nitrogen 7 L 9-23 mg/dL Creatinine 0.73 0.700-1.30 mg/dL Glomerular Filtration Rate Calc 100 >90 mL/min BUN/Creatinine Ratio 9.6 L 10.0-20.0 Serum Glucose 90 74-106 mg/dL Calcium Level 9.1 8.7-10.4 mg/dL Magnesium Level 2.1 1.6-2.6 mg/dL Total Bilirubin 0.4 0.2-1.0 mg/dL Aspartate Amino Transferase (AST) 23 13-40 U/L Alanine Aminotransferase (ALT) 15 7-40 U/L Alkaline Phosphatase 114 46-116 U/L B-Type Natriuretic Peptide 45.61 0-100 pg/mL Total Protein 7.5 5.7-8.2 g/dL Albumin 4.3 3.2-4.8 g/dL Assessment/Plan Assessment/Plan Assessment and plan: # Possible acute exacerbation of chronic diastolic heart failure - X-ray chest revealed cardiomegaly with mild pulmonary vascular congestion - BNP is not elevated - Lasix IV 20 mg daily - Echo on 01/12 revealed ejection fraction 55% with grade 1 diastolic abnormality. - Strict I&O # Hypertensive heart disease - Lisinopril 40 mg p.o. daily # Vitamin D deficiency - Vitamin-D 84162 units Q 7D. # DVT prophylaxis - Lovenox 40 mg sc daily Goal of care discussed with the patient for more than 20 minutes full code Plan of treatment discussed with Dr. Walker Plan discussed with: Patient, Other My Orders Orders - HAKEEM MARI RESIDENT Procedure Category Date Status Time Admit ADMIT 08/03/24 Transmitted 20:44 Code Status CODE 08/03/24 Transmitted 20:44 Sodium Chloride Lock PHA 08/03/24 In Process (Saline Lock Ns) 22:00 Oxygen Per Hour RT 08/03/24 Transmitted 20:44 Hydrocodone-Acet PHA 08/03/24 In Process 5/325mg Tab ([place] 20:45 Ondansetron Hcl PHA 08/03/24 In Process (Zofran) 20:45 Complete Blood Count LAB 08/04/24 Verified 04:00 Comprehensive LAB 08/04/24 Verified Metabolic Panel 04:00 Cardiac DIET 08/04/24 Transmitted Diet-2gna,Lofat,Lochol Breakfast Nitroglycerin PHA 08/03/24 In Process Sublingual (Ntrostat 20:45 Morphine Sulfate PHA 08/03/24 In Process Injection 20:45 Oxygen By Nasal RT 08/03/24 Transmitted Cannula 20:44 Stat Ekg For Chest NORY 08/03/24 In Process Pain 20:44 Notify Of Changes NORY 08/03/24 In Process From Base 20:44 Bulldozer Press Operator For NORY 08/03/24 In Process 24 Hours 20:44 Emergency Dysrhythmia NORY 08/03/24 In Process Protocol 20:44 Rhythm Strips Once NORY 08/03/24 In Process Every Shift 20:44 Covid19 Antigen [place]ree LAB 08/03/24 Logged Rapid Influenza A&B LAB 08/03/24 Logged 22:11 Hemoglobin A1c LAB 08/03/24 In Process 22:11 Thyroid Stimulating LAB 08/03/24 In Process Hormone 22:11 Vitamin B12 LAB 08/03/24 In Process 22:11 Vitamin D, 25-Hydroxy LAB 08/03/24 In Process 22:11 Furosemide Injection PHA 08/04/24 In Process (Lasix Injection) 10:00 Atorvastatin (Lipitor) PHA 08/04/24 In Process 22:00 Lisinopril Tablet PHA 08/04/24 In Process (Zestril Tablet) 10:00 Albuterol Medneb PHA 08/03/24 Logged (Ventolin Medneb) 22:30 Ipratropium Medneb PHA 08/03/24 In Process (Atrovent Medneb) 22:30 Date of Service: Aug 03, 2024 Billing Provider: JENNIFER WALKER MD Common Visit Codes: 61696-[id number] INP/OBS CARE (HIGH) Secondary Visit Codes: [id number] CARE PLAN 30 MINUTES HAKEEM MARI RESIDENT Aug 03, 2024 22:24 JENNIFER WALKER MD Aug 04, 2024 13:42
[2024-08-03] MEDS ORDERED: ALBUTEROL SULF 2.5 MG/0.5ML(0.5%) NEB SOLN NEB PRN (22:30)
[2024-08-03] MEDS ORDERED: IPRATROPIUM BROM 0.5 MG/2.5ML INH SOL NEB PRN (22:30)
[2024-08-03 23:16] VITALS: BP 157/81; PULSE 86; RESP 20; TEMP 97.9; O2SAT 97
[2024-08-04 00:24] VITALS: O2SAT 95
[2024-08-04 01:00] VITALS: PULSE 68; RESP 16; O2SAT 97
[2024-08-04] MEDS: FUROSEMIDE 40 MG/4 ML VIAL IV ONE (01:35)
[2024-08-04] MEDS: SODIUM CHLOR 0.9% PF (SALINE LOCK) 10ML VIAL/SYR IV SCH (01:35)
[2024-08-04 05:52] LABS: Basophils # (auto) 0 10 ^3/uL (0-0.2); Basophils % (auto) 0.6 % (0.0-2.0); Eosinophils # (auto) 0.3 10 ^3/uL (0-0.8); Eosinophils % (auto) 4.4 % (0.0-7.0); Hematocrit 43.6 % (41.0-53.0); Hemoglobin 14.4 g/dL (13.5-17.5); Lymphocytes # (auto) 2.4 10 ^3/uL (0.4-5.4); Lymphocytes % (auto) 30.7 % (10.0-50.0); Mean Corpuscular Hemoglobin 30.3 pg (28.0-32.0); Mean Corpuscular Hgb Conc. 33.1 g/dL (32.0-36.0); Mean Corpuscular Volume 91.6 fL (80.0-100.0); Monocytes # (auto) 0.8 10 ^3/uL (0-1.3); Monocytes % (auto) 10.4 % (0.0-12.0); Neutrophils # (auto) 4.2 10 ^3/uL (1.6-8.6); Neutrophils % (auto) 53.9 % (37.0-80.0); Nucleated Red Blood Cells % 0.1 %; Platelet Count (auto) 104 10^3/uL (140-450); Red Blood Cells 4.76 10^6/uL (4.5-5.90); Red Cell Distribution Width 12.7 % (11.8-14.3); White Blood Cell 7.8 10^3/uL (4.4-10.8)
[2024-08-04 06:13] LABS: Alanine Aminotransferase 17 U/L (7-40); Albumin 4.4 g/dL (3.2-4.8); Alkaline Phosphatase 119 U/L (46-116); Anion Gap 11 (5-15); Aspartate Aminotransferase 22 U/L (13-40); BUN/Creatinine Ratio 11.9 (10.0-20.0); Bilirubin, Total 0.3 mg/dL (0.2-1.0); Blood Urea Nitrogen 10 mg/dL (9-23); Calcium 9.4 mg/dL (8.7-10.4); Carbon Dioxide 24 mmol/L (20-31); Chloride 106 mmol/L (98-107); Glucose 104 mg/dL (74-106); Potassium 3.4 mmol/L (3.5-5.1); Sodium 141 mmol/L (136-145); Total Protein 7.7 g/dL (5.7-8.2)
[2024-08-04] MEDS: ERGOCALCIFEROL 50,000 UNIT(1.25MG) CAP PO SCH (06:14)
[2024-08-04] MEDS: POTASSIUM EFFERVESENT TAB 25 MEQ GT ONE (07:31)
[2024-08-04 08:15] VITALS: O2SAT 95
[2024-08-04] MEDS: FUROSEMIDE 20 MG/2 ML VIAL IV SCH (10:21)
[2024-08-04] MEDS: FAMOTIDINE 20 MG TAB PO SCH (10:21)
[2024-08-04] MEDS: LISINOPRIL 20 MG TAB PO SCH (10:22)
[2024-08-04] MEDS: ENOXAPARIN SOD 40 MG/0.4 ML SYRINGE SC SCH (10:22)
--- NOTE | 2024-08-04 10:27 | DVH ---
Bilateral lower extremity venous duplex Clinical History: DVT Comparison: None Technique: Duplex Doppler evaluation of the deep venous systems of both lower extremities from the common femora l veins to the popliteal veins including color Doppler and spectral/pulsed waveform analysis was perf ormed. Findings: RIGHT SIDE: The common femoral vein demonstrates appropriate compressibility and waveform variability . There is compressibility/patency of the great saphenous vein at the proximal thigh . The femoral vein demonstrates appropriate compressibility and waveform variability . The deep femoral vein demonstrates appropriate compressibility and waveform variability . The popliteal vein demonstrates appropriate compressibility and waveform variability . There is color flow at the tibioperoneal trunk and in the posterior tibial vein. LEFT SIDE: The common femoral vein demonstrates appropriate compressibility and waveform variability . There is compressibility/patency of the great saphenous vein at the proximal thigh . The femoral vein demonstrates appropriate compressibility and waveform variability . The deep femoral vein demonstrates appropriate compressibility and waveform variability . The popliteal vein demonstrates appropriate compressibility and waveform variability . There is color flow at the tibioperoneal trunk and in the posterior tibial vein. Impression: 1. No right or left femoropopliteal venous thrombosis.
[2024-08-04 11:06] VITALS: BP 140/80; PULSE 80; RESP 18; TEMP 98.1; O2SAT 97
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
[2024-08-04] MEDS ORDERED: FUROSEMIDE 20 MG/2 ML VIAL IV SCH (18:00)
[2024-08-04] MEDS ORDERED: ATORVASTATIN 20 MG TAB PO SCH (22:00)
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
== END 2024-08-04 16:14 | disposition left against medical advice (07) | DRG 194 ==
LOC: ER 17:10 → EDUNIT# 17:10 → EDBD 17:10 → OVERFLOW 20:44
PROVIDERS: ADMIT Student in an Organized Health Care Education/Training Program; ATTEND Emergency Medicine
DX: I11.0 Hypertensive heart disease with heart failure (principal); D69.6 Thrombocytopenia, unspecified; Z99.81 Dependence on supplemental oxygen; I50.33 Acute on chronic diastolic (congestive) heart failure; E78.5 Hyperlipidemia, unspecified; E87.6 Hypokalemia; E83.42 Hypomagnesemia; K21.9 Gastro-esophageal reflux disease without esophagitis; Z91.148 Patient's other noncompliance with medication regimen for other reason; Z83.3 Family history of diabetes mellitus
CPT/HCPCS: 36415; 71045; 80053; 82306; 82607; 83036; 83735; 83880; 84443; 84484; 85025; 93005; 93970; G0378

== ENCOUNTER 2024-10-21 06:16 | Emergency (ER) | payer MEDICAID ==
[~2024-10-21] VITALS: Ht 172.7 cm; Wt 91.0 kg
[~2024-10-21 06:16] MED LIST changes: -ATOR40TA52 PO; -CEPH250C PO; -IPRA0.00 IN
--- NOTE | 2024-10-21 06:51 | ECG ---
[facility] Test Date: 2024-10-21 Test Time: 06:17:49 Pat Name: REINIER CHILDS Department: er Room: Gender: M [employer]: : 1960 Requested By: EMERGENCY EMERGENCY Order Number: [id number] Reading MD: Cory Mendiola Measurements Intervals [place] Rate: 81 P: 36 GA: 167 QRS: -31 QRSD: 99 T: 18 QT: 422 QTc: 490 Interpretive Statements Sinus rhythm Left axis deviation Borderline prolonged QT interval Baseline wander in lead(s) II,V1,V2,V3,V5,V6 Electronically Signed On 10-21-2024 13:17:47 PST by Cory Mendiola Please click the below link to view image of tracing.
[2024-10-21] MEDS: IPRATROPIUM BROM 0.5 MG/2.5ML INH SOL NEB ONE (07:00)
[2024-10-21] MEDS: ALBUTEROL SULF 2.5 MG/0.5ML(0.5%) NEB SOLN NEB ONE (07:00)
--- NOTE | 2024-10-21 07:03 | ED.PDOC ---
SOB-HPI HPI Comments 64 year old male brought in by EMS presents to the ED with a chief complaint of shortness of breath onset yesterday. Per EMS, patient was experiencing shortness of breath since yesterday as well as chest pain, described as a sharp and tightness sensation as well as cough, nausea, vomiting. He is usually on 2l of O2 at home. Upon EMS arrival patient's BP was 178/104, O2 sat % on 2L, 98.4 F temperature, HR 78. PMHx of HTN. No other symptoms or modifying factors present at this time. Chief Complaint: Shortness of Breath Time Seen by MD: 06:26 Primary Care Provider: NIKOLAI Ortiz notes: Medications, Allergies Information Source: Patient, Emergency Med Personnel Mode of Arrival: EMS Severity: Moderate Timing: Days Duration: Since onset Context: At Rest PE Risk Factors: None History of: None Prehospital treatment: Oxygen, Treatment Modifying Factors: Nothing Associated Signs and Symptoms: Cough Quality: Sharp, Tightness Radiation: No Radiation If cough with SOB: Productive Past Medical History PAST MEDICAL HISTORY: HTN Surgical History: Denies all surgeries Family History Family History: Unknown Social History Smoker: Non-Smoker, Quit Greater Than 1 Year Alcohol: Occasionally Drugs: Denies Drug Use Lives In: Home Constitutional: denies: chills, diaphoresis, fatigue, fever, malaise, sweats, weakness, others EENTM: denies: blurred vision, double vision, ear bleeding, ear discharge, ear drainage, ear pain, ear ringing, eye pain, eye redness, hearing loss, mouth pain, mouth swelling, nasal discharge, nose bleeding, nose congestion, nose pain, photophobia, tearing, throat pain, throat swelling, voice changes, others Respiratory: reports: cough, shortness of breath; denies: hemoptysis, orthopnea, SOB at rest, SOB with excertion, stridor, wheezing, others Cardiovascular: reports: chest pain (tightness); denies: dizzy spells, diaphoresis, Dyspnea on exertion, edema, irregular heart beat, left arm pain, lightheadedness, palpitations, PND, syncope, others Gastrointestinal: reports: nausea, vomiting; denies: abdomen distended, abdominal pain, blood streaked bowels, constipated, diarrhea, dysphagia, difficulty swallowing, hematemesis, melena, poor appetite, poor fluid intake, rectal bleeding, rectal pain, others Genitourinary: denies: burning, dysuria, flank pain, frequency, hematuria, incontinence, penile discharge, penile sore, pain, testicle pain, testicle swelling, urgency, others Neurological: denies: dizziness, fainting, headache, left sided numbness, left sided weakness, numbness, paresthesia, pre-existing deficit, right sided numbnes s, right sided weakness, seizure, speech problems, tingling, tremors, weakness, others Musculoskeletal: denies: back pain, gout, joint pain, joint swelling, muscle pain, muscle stiffness, neck pain, others Integumetry: denies: bruises, change in color, change in hair/nails, dryness, laceration, lesions, lumps, rash, wounds, others Allergic/Immunocompromised: denies: Difficulty Healing, Frequent Infections, Hives, Itching, others Hematologic/Lymphatic: denies: anemia, blood clots, easy bleeding, easy bruising, swollen glands, others Endocrine: denies: excessive hunger, excessive sweating, excessive thirst, excessive urination, flushing, intolerance to cold, intolerance to heat, unexplained weight gain, unexplained weight loss, others Psychiatric: denies: anxiety, bipolar disorder, depression, hopeless, panic disorder, schizophrenia, sleepless, suicidal, others All Other Systems: Reviewed and Negative Physical Exam General Appearance: Mild Distress HEENT: Normal ENT Inspection, PERRL/EOMI, Pharynx Normal, TMs Normal Neck: Full Range of Motion, Non-Tender, Normal, Normal Inspection Respiratory: Chest Non-Tender, Lungs Clear, No Accessory Muscle Use, No Respiratory Distress, Normal Breath Sounds Cardiovascular: No Edema, No JVD, No Murmur, No Gallop, Normal Peripheral Pulses, Regular Rate/Rhythm Breast Exam: Deferred Gastrointestinal: Non Tender, No Pulsatile Mass, Normal Bowel Sounds, Soft Genitalia: Deferred Pelvic: Deferred Rectal: Deferred Extremities: No calf tenderness, Normal capillary refill, Normal inspection, Normal range of motion, Non-tender, No pedal edema Neurologic: Alert, supervisor fine grading II-XII nml as Tested, No Motor Deficits, Normal Affect, Normal Mood, No Sensory Deficits Cerebellar Function: NOT DONE Reflexes: NOT DONE Skin: Dry, Normal Color, Warm Lymphatic: No Adenopathy EKG EKG : Pulse Rate (adult): 167 Leming: LAD Cardiac Rhythm: NSR (81 BPM) Comments sinus rhythm 81 bpm, left axis deviation Was a procedure done? Was a procedure done?: No Differential Dx Differential Diagnosis: Anxiety, Bronchitis, CHF, COPD, Hyponatremia, Myocardial infarction, Panic Attack, Pneumonia, Pulmonary Embolism, URI X-Ray, Labs, Meds, VS Vital Signs Date Time Temp Pulse Resp B/P (MAP) Pulse Ox O2 Delivery O2 Flow Rate FiO2 10/21/24 10:01 96 17 110/81 (91) 95 10/21/24 07:29 92 16 96 Nasal Cannula* 2 28 10/21/24 07:29 98.5 92 16 144/93 (110) 96 98.5 10/21/24 07:17 167 10/21/24 07:00 18 96 Nasal Cannula* 2 28 10/21/24 06:17 81 10/21/24 06:16 98.4 78 20 178/104 (128) 97 Lab Test 10/21/24 08:26 10/21/24 07:27 10/21/24 07:13 Range/Units Troponin I High Sensitivity < 3 L < 3 L </=54 ng/L Influenza Type A Antigen Negative Negative Influenza Type B Antigen Negative Negative SARS-CoV-2 Antigen (Rapid) Negative NEGATIVE White Blood Count 10.3 4.4-10.8 10^3/uL Red Blood Count 4.73 4.5-5.90 10^6/uL Hemoglobin 14.4 13.5-17.5 g/dL Hematocrit 43.2 41.0-53.0 % Mean Corpuscular Volume 91.1 80.0-100.0 fL Mean Corpuscular Hemoglobin 30.5 28.0-32.0 pg Mean Corpuscular Hemoglobin Concent 33.4 32.0-36.0 g/dL Red Cell Distribution Width 13.0 11.8-14.3 % Platelet Count 95 L 140-450 10^3/uL Mean Platelet Volume 10.8 6.9-10.8 fL Neutrophils (%) (Auto) 62.2 37.0-80.0 % Lymphocytes (%) (Auto) 27.4 10.0-50.0 % Monocytes (%) (Auto) 8.6 0.0-12.0 % Eosinophils (%) (Auto) 1.4 0.0-7.0 % Basophils (%) (Auto) 0.4 0.0-2.0 % Neutrophils # (Auto) 6.4 1.6-8.6 10 ^3/uL Lymphocytes # (Auto) 2.8 0.4-5.4 10 ^3/uL Monocytes # (Auto) 0.9 0-1.3 10 ^3/uL Eosinophils # (Auto) 0.1 0-0.8 10 ^3/uL Basophils # (Auto) 0 0-0.2 10 ^3/uL Nucleated Red Blood Cells 0.0 % D-Dimer, Quantitative 0.25 0.0-0.49 mg/L FEU Sodium Level 141 136-145 mmol/L Potassium Level 3.5 3.5-5.1 mmol/L Chloride Level 104 98-107 mmol/L Carbon Dioxide Level 27 20-31 mmol/L Anion Gap 10 5-15 Blood Urea Nitrogen 11 9-23 mg/dL Creatinine 0.82 0.700-1.30 mg/dL Glomerular Filtration Rate Calc 97 >90 mL/min BUN/Creatinine Ratio 13.4 10.0-20.0 Serum Glucose 93 74-106 mg/dL Calcium Level 9.3 8.7-10.4 mg/dL Magnesium Level 2.2 1.6-2.6 mg/dL Total Bilirubin 0.9 0.2-1.0 mg/dL Aspartate Amino Transferase (AST) 30 13-40 U/L Alanine Aminotransferase (ALT) 28 7-40 U/L Alkaline Phosphatase 106 46-116 U/L B-Type Natriuretic Peptide 9.98 0-100 pg/mL Total Protein 7.8 5.7-8.2 g/dL Albumin 4.8 3.2-4.8 g/dL Current Medications Medications (Trade) Dose Ordered Sig/Jan Route Start Time Stop Time Status Last Admin Ipratropium Hooper (Atrovent Medneb) 0.5 mg ONCE ONCE NEB 10/21/24 06:45 10/21/24 06:46 DC 10/21/24 07:00 Albuterol (Ventolin Medneb) 5 mg ONCE ONCE NEB 10/21/24 06:45 10/21/24 06:46 DC 10/21/24 07:[address] [address] Ph: [phone] DIAGNOSTIC IMAGING Diagnostic Imaging Report : [id number] Signed PATIENT: REINIER CHILDS ACCT: [id number] UNIT: [id number] : 1960 LOC: ER ROOM / BED: / AGE / SEX: 64 / M ADM STATUS: REG ER SERVICE ORDERING PHYSICIAN: GRUPO EDWARDS MD PROCEDURE(s): CXRP - CHEST PORTABLE REASON: cough ORDER NUMBER(s): [id number], ACCESSION NUMBER(s): [id number] CHEST RADIOGRAPH Indication: cough Technique: Single frontal view of the chest was obtained Comparison: XY CHEST PORTABLE on DOS: 08/03/24 FINDINGS: Lines and Tubes: None Lungs: No focal consolidation. Pleura: No effusion. No pneumothorax. Cardiomediastinal contours: Unremarkable Bones: No acute osseous abnormality. IMPRESSION: 1. No acute cardiopulmonary disease. ATED BY: BEATRIZ RODAS MD DICTATED DATE/TIME: 10/21/24732 SIGNED BY: BEATRIZ RODAS MD SIGNED DATE/TIME: 10/21/24732 CC: X-Ray, Labs, Meds, VS Comment This 64-year-old male he was on home oxygen secondary to COPD presents to emergency room secondary to increasing shortness of breath and chest pain. The patient is on 2 L at home continue to be on 2 L. The patient appears unwell diaphoretic despite having heart score of 3. He only endorses hypertension as a risk factor for cardiac disease. However, secondary to his appearance and history, the patient for further workup management of his chest pain. Time of 1ST Reevaluation: 10:12 Reevaluation 1ST: Unchanged Patient Education/Counseling: Diagnosis, Treatment, Prognosis Family Education/Counseling: No Family Present Additional Information The following tests were ordered, and results were reviewed by me:EKG, CBC, CMP, MAGNESIUM, D-DIMER, BNP, TROP -x3, RAPID INFLUENZA A&B, COVID, XY CHEST Additional Information was gathered from interviewing the following independent historians: EMS I reviewed and agreed with the following test results read by other providers: XY CHEST I discussed treatment and results with medical personnel and patient Departure 1 Departure Time of Disposition: 10:11 Impression: Primary Impression: Chest pain Additional Impression: Dyspnea Disposition: 09 ADMITTED INPATIENT Condition: Serious Critical Care Note Critical Care Time?: No Stability Stability form required: No Heart Score Heart Score: Heart Score Response (Comments) Value History Slightly Suspicious 0 EKG Normal 0 Age >65 2 Risk Factors 1 or 2 risk factors 1 Troponin Normal limit 0 Total 3 I personally scribed for GRUPO EDWARDS MD ([email or web address]) on 10/21/24 at 07:03. Electro nically submitted by Carlotta Rosado ([email or web address]). I personally scribed for GRUPO EDWARDS MD ([email or web address]) on 10/21/24 at 07:03. Electronically submitted by Carlotta Rosado ([email or web address]). I personally scribed for GRUPO EDWARDS MD ([email or web address]) on 10/21/24 at 07:12. Electronically submitted by Carlotta Rosado ([email or web address]). I personally scribed for GRUPO EDWARDS MD ([email or web address]) on 10/21/24 at 07:17. Electronically submitted by Carlotta Rosado ([email or web address]). I personally scribed for GRUPO EDWARDS MD ([facility]) on 10/21/24 at 08:37. Electronically submitted by Carlotta Rosado ([email or web address]). I personally scribed for GRUPO EDWARDS MD ([email or web address]) on 10/21/24 at 09:10. Electronically submitted by Carlotta Rosado ([email or web address]). GRUPO EDWARDS MD Oct 21, 2024 07:03
[2024-10-21 07:29] VITALS: PULSE 92; RESP 16; TEMP 98.5; O2SAT 96
--- NOTE | 2024-10-21 07:36 | DVH ---
CHEST RADIOGRAPH Indication: cough Technique: Single frontal view of the chest was obtained Comparison: XY CHEST PORTABLE on DOS: 08/03/24 FINDINGS: Lines and Tubes: None Lungs: No focal consolidation. Pleura: No effusion. No pneumothorax. Cardiomediastinal contours: Unremarkable Bones: No acute osseous abnormality. IMPRESSION: 1. No acute cardiopulmonary disease.
[2024-10-21 07:45] LABS: Basophils # (auto) 0 10 ^3/uL (0-0.2); Basophils % (auto) 0.4 % (0.0-2.0); Eosinophils # (auto) 0.1 10 ^3/uL (0-0.8); Eosinophils % (auto) 1.4 % (0.0-7.0); Hematocrit 43.2 % (41.0-53.0); Hemoglobin 14.4 g/dL (13.5-17.5); Lymphocytes # (auto) 2.8 10 ^3/uL (0.4-5.4); Lymphocytes % (auto) 27.4 % (10.0-50.0); Mean Corpuscular Hemoglobin 30.5 pg (28.0-32.0); Mean Corpuscular Hgb Conc. 33.4 g/dL (32.0-36.0); Mean Corpuscular Volume 91.1 fL (80.0-100.0); Monocytes # (auto) 0.9 10 ^3/uL (0-1.3); Monocytes % (auto) 8.6 % (0.0-12.0); Neutrophils # (auto) 6.4 10 ^3/uL (1.6-8.6); Neutrophils % (auto) 62.2 % (37.0-80.0); Platelet Count (auto) 95 10^3/uL (140-450); Red Blood Cells 4.73 10^6/uL (4.5-5.90); White Blood Cell 10.3 10^3/uL (4.4-10.8)
[2024-10-21 07:53] LABS: Alanine Aminotransferase 28 U/L (7-40); Alkaline Phosphatase 106 U/L (46-116); Anion Gap 10 (5-15); Aspartate Aminotransferase 30 U/L (13-40); BUN/Creatinine Ratio 13.4 (10.0-20.0); Blood Urea Nitrogen 11 mg/dL (9-23); Calcium 9.3 mg/dL (8.7-10.4); Carbon Dioxide 27 mmol/L (20-31); Chloride 104 mmol/L (98-107); Glucose 93 mg/dL (74-106); Magnesium 2.2 mg/dL (1.6-2.6); Potassium 3.5 mmol/L (3.5-5.1); Sodium 141 mmol/L (136-145)
[2024-10-21 07:54] LABS: Albumin 4.8 g/dL (3.2-4.8); Bilirubin, Total 0.9 mg/dL (0.2-1.0); Total Protein 7.8 g/dL (5.7-8.2)
[2024-10-21 08:07] LABS: COVID19 ANTIGEN SOFIA FIA NEGATIVE (NEGATIVE)
[2024-10-21 08:08] LABS: Rapid Influenza A Negative (Negative); Rapid Influenza B Negative (Negative)
[2024-10-21 10:01] VITALS: BP 110/81; PULSE 96; RESP 17; O2SAT 95
== END 2024-10-21 10:43 | disposition left against medical advice (07) ==
LOC: EDBD 06:16 → ER 06:16
DX: R07.9 Chest pain, unspecified (principal); R06.02 Shortness of breath; I10 Essential (primary) hypertension; J44.9 Chronic obstructive pulmonary disease, unspecified; R94.31 Abnormal electrocardiogram [ECG] [EKG]; Z20.822 Contact with and (suspected) exposure to COVID-19
CPT/HCPCS: 36415; 71045; 80053; 83735; 83880; 84484; 85025; 85379; 87426; 87804; 93005; 94640